=== PATIENT | male | born 1955 | race Caucasian/White ===

== ENCOUNTER 2019-06-13 06:57 | Outpatient (CLI) | payer OTHER, SELFPAY ==
[2019-06-13 08:17] LABS: Hemoglobin A1C 6.9 % (<5.7)
[2019-06-15 09:42] LABS: Testosterone Total 734 ng/dL (250-1100)
== END 2019-06-13 06:58 | disposition home or self-care (01) ==
PROVIDERS: PCP Internal Medicine; Visit Provider Internal Medicine
DX: E11.9 Type 2 diabetes mellitus without complications (principal)
CPT/HCPCS: 36415; 83036; 84403

== ENCOUNTER 2019-12-02 06:36 | Outpatient (CLI) | payer OTHER, SELFPAY ==
[2019-12-02 07:26] LABS: Hemoglobin A1C 6.2 % (<5.7)
[2019-12-02 07:29] LABS: Alanine Aminotransferase 30 U/L (4-50); Albumin Level 4.3 g/dL (3.5-5.1); Alkaline Phosphatase 67 U/L (38-126); Anion Gap 6 mmol/L (8-16); Aspartate Amino Transferase 24 U/L (17-59); Bilirubin,Total 0.5 mg/dL (0.2-1.3); Blood Urea Nitrogen 16 mg/dL (9-20); Calcium 9.1 mg/dL (8.4-10.2); Carbon Dioxide 30 mmol/L (22-30); Chloride 102 mmol/L (98-107); Cholesterol 124 mg/dL (0-200); Estimated Glomerular Filt Rate > 60; Glucose 108 mg/dL (75-110); HDL Direct 34 mg/dL; Potassium 4.8 mmol/L (3.4-5.0); Sodium 138 mmol/L (137-145); Triglycerides 164 mg/dL (<150)
[2019-12-02 07:41] LABS: LDL Cholesterol Direct 59 mg/dL
[2019-12-02 08:08] LABS: Vitamin D 25 Hydroxy 37.4 ng/mL
[2019-12-06 13:12] LABS: Testosterone Total 218 ng/dL (250-1100)
== END 2019-12-02 06:37 | disposition home or self-care (01) ==
PROVIDERS: PCP Internal Medicine; Visit Provider Nurse Practitioner
DX: E55.9 Vitamin D deficiency, unspecified (principal); E11.9 Type 2 diabetes mellitus without complications; E78.5 Hyperlipidemia, unspecified; E29.1 Testicular hypofunction
CPT/HCPCS: 36415; 80053; 80061; 82306; 83036; 84403

== ENCOUNTER 2019-12-23 06:46 | Outpatient (CLI) | payer OTHER, SELFPAY ==
[2019-12-29 00:37] LABS: Testosterone Free 146.3 pg/mL (35.0-155.0); Testosterone Total 540 ng/dL (250-1100)
== END 2019-12-23 06:47 | disposition home or self-care (01) ==
PROVIDERS: PCP Internal Medicine; Visit Provider Nurse Practitioner
DX: E29.1 Testicular hypofunction (principal); R79.89 Other specified abnormal findings of blood chemistry
CPT/HCPCS: 36415; 84402; 84403

== ENCOUNTER 2020-03-27 06:40 | Outpatient (CLI) | payer OTHER, SELFPAY ==
[2020-03-27 07:51] LABS: Alanine Aminotransferase 25 U/L (4-50); Albumin Level 4.1 g/dL (3.5-5.1); Alkaline Phosphatase 68 U/L (38-126); Anion Gap 7 mmol/L (8-16); Aspartate Amino Transferase 20 U/L (17-59); Bilirubin,Total 0.4 mg/dL (0.2-1.3); Blood Urea Nitrogen 21 mg/dL (9-20); Calcium 9.4 mg/dL (8.4-10.2); Carbon Dioxide 30 mmol/L (22-30); Chloride 103 mmol/L (98-107); Cholesterol 118 mg/dL (0-200); Estimated Glomerular Filt Rate > 60; Glucose 151 mg/dL (75-110); HDL Direct 33 mg/dL; Potassium 4.9 mmol/L (3.4-5.0); Sodium 140 mmol/L (137-145); Triglycerides 133 mg/dL (<150)
[2020-03-27 08:02] LABS: LDL Cholesterol Direct 61 mg/dL
[2020-03-27 08:06] LABS: Hemoglobin A1C 6.9 % (<5.7)
[2020-03-31 11:17] LABS: Testosterone Total 959 ng/dL (250-1100)
== END 2020-03-27 06:41 | disposition home or self-care (01) ==
PROVIDERS: PCP Internal Medicine; Visit Provider Nurse Practitioner
DX: E78.5 Hyperlipidemia, unspecified (principal); E11.9 Type 2 diabetes mellitus without complications; E29.1 Testicular hypofunction
CPT/HCPCS: 36415; 80053; 80061; 83036; 84403

== ENCOUNTER → 2020-04-04 06:56 | Outpatient (CLI) | payer OTHER, SELFPAY ==
--- NOTE | ~2020-04-04 | MR_ITS ---
EXAMINATION: MR cervical spine wo con DATE: 04/04/2020 08:00 INDICATION: Neck pain. TECHNIQUE: Magnetic resonance imaging (MRI) of the cervical spine was performed without intravenous c ontrast. Sequences included sagittal T2-weighted FSE, sagittal STIR FSE, sagittal T1-weighted FSE, ax ial MERGE, and axial T2-weighted FSE. COMPARISON: Cervical spine MRI 05/19/2011 FINDINGS: Bone alignment is normal. Vertebral body heights are normal. There is mildly decreased disc height at C4-C5, C5-C6, and C6-C7. There is developmental osseous central canal stenosis from C1 the C7. The spinal cord signal intensity is normal. The following disc levels are specifically discussed : C2-C3: The disc does not extend beyond the endplate margin. There is no uncovertebral joint osteoarth ritis. There is mild bilateral facet joint osteoarthritis. There is no neural foraminal stenosis. The re is mild central canal stenosis. C3-C4: The disc does not extend beyond the endplate margin. There is moderate right and mild left unc overtebral joint osteoarthritis. There is mild right facet joint osteoarthritis. There is mild right neural foraminal stenosis. There is mild central canal stenosis. C4-C5: The disc is bulging. There is severe bilateral uncovertebral joint osteoarthritis. There is mi ld left facet joint osteoarthritis. There is moderate bilateral neural foraminal stenosis. There is m ild central canal stenosis with ventral indentation of the spinal cord. C5-C6: The disc is bulging. There is moderate right and severe left uncovertebral joint osteoarthriti s. There is mild bilateral facet joint osteoarthritis. There is moderate bilateral neural foraminal s tenosis. There is mild central canal stenosis with ventral indentation of the spinal cord. C6-C7: The disc is bulging with superimposed central extrusion. There is moderate bilateral uncoverte bral joint osteoarthritis. There is no facet joint osteoarthritis. There is moderate bilateral neural foraminal stenosis. There is moderate central canal stenosis with ventral and dorsal indentation of the spinal cord. C7-T1: The disc does not extend beyond the endplate margin. There is no uncovertebral joint osteoarth ritis. There is moderate right and mild left facet joint osteoarthritis. There is no neural foraminal stenosis. There is no central canal stenosis. IMPRESSION: 1. Moderate cervical spondylosis, stable from 09/17/2011. Reviewed, dictated and finalized at location A. 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
--- NOTE | ~2020-04-04 | MR_ITS ---
EXAMINATION: MR lumbar spine wo con DATE: 04/04/2020 08:05 INDICATION: Low back pain. TECHNIQUE: Magnetic resonance imaging (MRI) of the lumbar spine was performed without intravenous con trast. Sequences included sagittal T2-weighted FSE, sagittal T2-weighted FS FSE, sagittal T1-weighted FSE, and axial T2-weighted FSE. COMPARISON: Lumbar spine MRI 09/29/2018 FINDINGS: There is 5 degrees levocurvature of lumbar spine. There is 3 mm anterolisthesis of L4 on L5 . There are Schmorl's nodes at all levels. There is mildly decreased disc height at L2-L3. The distal spinal cord signal intensity is normal. The conus medullaris is at L1. The following disc levels are specifically discussed: L1-L2: The disc does not extend beyond the endplate margin. There is mild bilateral facet joint osteo arthritis. There is no neural foraminal stenosis. There is no central canal stenosis. L2-L3: The disc is bulging. There is mild bilateral facet joint osteoarthritis. There is moderate ml ateral neural foraminal stenosis. There is mild central canal stenosis. L3-L4: The disc is bulging. There is mild bilateral facet joint osteoarthritis. There is moderate ml ateral neural foraminal stenosis. There is mild central canal stenosis. L4-L5: The disc is bulging. There is severe bilateral facet joint osteoarthritis. There is moderate b ilateral neural foraminal stenosis. There is mild central canal stenosis. L5-S1: The disc is bulging and has an annular fissure. There is moderate bilateral facet joint osteoa rthritis. There is mild right and moderate left neural foraminal stenosis. There is mild central ralph l stenosis. IMPRESSION: 1. Moderate lumbar spondylosis, stable from 09/29/2018. Reviewed, dictated and finalized at location A. 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
== END ==
PROVIDERS: PCP Internal Medicine; Visit Provider Nurse Practitioner Family
DX: M47.897 Other spondylosis, lumbosacral region (principal); M47.892 Other spondylosis, cervical region; M47.896 Other spondylosis, lumbar region
CPT/HCPCS: 72141; 72148

== ENCOUNTER 2020-04-16 08:36 | Outpatient (CLI) | payer OTHER, SELFPAY ==
--- NOTE | ~2020-04-16 | CT_ITS ---
EXAMINATION: CT lung screening EXAM DATE: 04/16/2020 09:12 INDICATION: Z72.0 - Tobacco use. Personal history of nicotine dependence. TECHNIQUE: Spiral low dose CT of the chest without contrast. Axial, coronal and sagittal images were reviewed. The dose-length product (DLP) for this examination was 317.95 mGy-cm. The exposure was t ailored according to patient size (auto mA exposure control), and iterative reconstruction (ASIR) was used as additional dose reduction technique. There is no prior study for comparison. FINDINGS: There is calcified left upper lobe granuloma. 2 to 3 mm pleural-based right upper lobe nod ule on axial image 36. Small amount of linear bibasilar scarring. No suspicious pulmonary opacities. Tracheobronchial tree is patent. There is no mediastinal, hilar or axillary lymphadenopathy. Sma ll pericardial effusion. There is no pneumothorax. Heart normal in size. There is mild coronary arterial calcification, arterial sclerosis. Upper abdomen is unremarkable. There is mild thoracic s pondylosis without osteoblastic or osteolytic lesions identified. IMPRESSION: Lung-RADS category 2, benign appearance or behavior (<1% chance of malignancy); recommend continued LDCT screening in 1 year. Reviewed, dictated and finalized at location A. E
== END 2020-04-16 08:37 | disposition home or self-care (01) ==
PROVIDERS: PCP Internal Medicine; Visit Provider Internal Medicine
DX: Z12.2 Encounter for screening for malignant neoplasm of respiratory organs (principal); Z87.891 Personal history of nicotine dependence
CPT/HCPCS: 71271

== ENCOUNTER → 2020-05-11 06:57 | Outpatient (CLI) | payer OTHER, SELFPAY ==
[2020-05-11 18:19] LABS: SARS-CoV-2 RNA PCR Negative
== END ==
PROVIDERS: PCP Internal Medicine; Visit Provider Nurse Practitioner
DX: Z20.822 Contact with and (suspected) exposure to COVID-19 (principal); R05 Cough
CPT/HCPCS: C9803; U0003; U0005

== ENCOUNTER 2020-07-16 06:36 | Outpatient (CLI) | payer OTHER, SELFPAY ==
[2020-07-16 07:46] LABS: Alanine Aminotransferase 46 U/L (4-50); Albumin Level 4.3 g/dL (3.5-5.1); Alkaline Phosphatase 66 U/L (38-126); Anion Gap 3 mmol/L (8-16); Aspartate Amino Transferase 33 U/L (17-59); Bilirubin,Total 0.2 mg/dL (0.2-1.3); Blood Urea Nitrogen 20 mg/dL (9-20); Calcium 9.3 mg/dL (8.4-10.2); Carbon Dioxide 32 mmol/L (22-30); Chloride 102 mmol/L (98-107); Cholesterol 121 mg/dL (0-200); Estimated Glomerular Filt Rate > 60; Glucose 110 mg/dL (75-110); HDL Direct 38 mg/dL; Potassium 4.5 mmol/L (3.4-5.0); Sodium 137 mmol/L (137-145); Triglycerides 245 mg/dL (<150)
[2020-07-16 07:58] LABS: LDL Cholesterol Direct 48 mg/dL
[2020-07-16 08:17] LABS: Prostate Specific Antigen 0.6 ng/mL (< OR = 4.0)
[2020-07-16 08:45] LABS: Hemoglobin A1C 7.5 % (<5.7)
[2020-07-16 09:02] LABS: Vitamin D 25 Hydroxy 29.3 ng/mL
[2020-07-16 09:16] LABS: Creatinine Urine 176.6 mg/dL
[2020-07-16 09:20] LABS: MALB Creatinine Ratio 6.9 mg/g (0-30); Microalbumin Urine Random 12.1 mg/L (0-16.7)
[2020-07-20 12:59] LABS: Testosterone Total 773 ng/dL (250-1100)
== END 2020-07-16 06:37 | disposition home or self-care (01) ==
PROVIDERS: PCP Internal Medicine; Visit Provider Internal Medicine
DX: E11.51 Type 2 diabetes mellitus with diabetic peripheral angiopathy without gangrene (principal); I10 Essential (primary) hypertension; E78.5 Hyperlipidemia, unspecified; Z12.5 Encounter for screening for malignant neoplasm of prostate; E29.1 Testicular hypofunction; R53.83 Other fatigue; E55.9 Vitamin D deficiency, unspecified
CPT/HCPCS: 36415; 80053; 80061; 82043; 82306; 83036; 84153; 84403; 84443; G0103

== ENCOUNTER 2020-07-17 08:00 | Outpatient (CLI) | payer OTHER, MEDICARE, SELFPAY | END 2020-07-17 08:01 | disposition home or self-care (01) | LOC: ANHCOVIDVC 08:01 | PROVIDERS: PCP Internal Medicine | DX: Z23 Encounter for immunization (principal) | CPT/HCPCS: 0001A; 91300 ==

== ENCOUNTER 2020-08-06 09:25 | Outpatient (CLI) | payer MEDICARE, SELFPAY | END 2020-08-06 09:26 | disposition home or self-care (01) | PROVIDERS: PCP Internal Medicine; Visit Provider Nurse Practitioner | DX: G47.00 Insomnia, unspecified (principal) | CPT/HCPCS: 36415; 84443 ==

== ENCOUNTER 2020-08-07 08:00 | Outpatient (CLI) | payer MEDICARE, SELFPAY | END 2020-08-07 08:01 | disposition home or self-care (01) | LOC: ANHCOVIDVC 08:00 | PROVIDERS: PCP Internal Medicine | DX: Z23 Encounter for immunization (principal) | CPT/HCPCS: 0002A; 91300 ==

== ENCOUNTER → 2021-01-28 06:51 | Outpatient (CLI) | payer OTHER, SELFPAY ==
--- NOTE | ~2021-01-28 | XR_ITS ---
EXAMINATION: XR cervical spine 4-5V EXAM DATE: 01/28/2021 08:30 INDICATION: Radiculopathy cervical region. TECHNIQUE: Cervical spine frontal, lateral, lateral swimmers, and open-mouth odontoid projections. C omparison is made to prior examination from 10/28/2018. FINDINGS: There is mild to moderate mid and lower cervical disc disease. Mild to moderate cervical a rthropathy. The vertebral bodies are aligned in the AP dimension. There are no acute fractures identi fied. The odontoid process is intact. The lateral masses of C1 line up with C2. Prevertebral soft ti ssue and pre-dens space are within normal limits. Mild carotid calcification, arterial sclerotic dise ase, with unknown amount of additional atherosclerotic disease. Consider correlating with carotid ul trasound. Difficult to appreciate any significant interval change compared to 2019. IMPRESSION: 1. Carotid arteriosclerosis, consider screening ultrasound. 2. Mild to moderate cervical spondylosis. Reviewed, dictated and finalized at location A.
--- NOTE | ~2021-01-28 | XR_ITS ---
EXAMINATION: XR knee LT 2V EXAM DATE: 01/28/2021 08:30 INDICATION: Pain in unspecified knee. TECHNIQUE: Frontal and lateral projections of the left knee standing. Comparison is made to prior ex amination from 07/26/2020. FINDINGS: Total left knee arthroplasty hardware in position. Trace joint fluid. There are no acute f ractures identified. Mild scattered arterial sclerosis. There is no significant interval change. IMPRESSION: Intact left knee arthroplasty. Reviewed, dictated and finalized at location A.
--- NOTE | ~2021-01-28 | XR_ITS ---
EXAMINATION: XR knee RT 2V EXAM DATE: 01/28/2021 08:30 INDICATION: Pain in unspecified knee. TECHNIQUE: Frontal and lateral projections of the right knee standing. Prior left knee exam from 16 which does have sunrise projection of both knees. FINDINGS: Right knee arthroplasty hardware is in expected position. No periprosthetic lucency. Only trace joint fluid. Minimal scattered arterial sclerotic disease. There are no acute fractures identif ied. IMPRESSION: Intact right knee arthroplasty. Reviewed, dictated and finalized at location A.
--- NOTE | ~2021-01-28 | XR_ITS ---
EXAMINATION: XR lumbar spine 2-3V EXAM DATE: 01/28/2021 08:30 INDICATION: Radiculopathy lumbar region. TECHNIQUE: Lumber spine frontal, lateral, lateral L5-S1 projections for interpretation. Images obtai tray standing. Comparison is made to prior examination from 09/09/2018. FINDINGS: There is 3 mm anterolisthesis L4 on L5. Mild diffuse lumbar disc disease. No spondylolysis . There is moderate lower lumbar facet arthropathy. Mild lumbar levoscoliosis. Sacrum, sacroiliac yoana nts, sacral arcuate lines are intact. Paraspinal soft tissue is unremarkable. Mild to moderate aortic arterial sclerosis. IMPRESSION: 1. Grade 1 anterolisthesis L4 on L5. 2. Moderate lower lumbar facet arthropathy. Reviewed, dictated and finalized at location A.
--- NOTE | ~2021-01-28 | XR_ITS ---
EXAMINATION: XR shoulder LT min 2V EXAM DATE: 01/28/2021 08:30 INDICATION: Left shoulder pain. No recent injury reported. Left shoulder surgery where they scraped b one a few years ago. TECHNIQUE: The following left shoulder projections obtained: frontal projection with internal rotatio n, frontal projection with external rotation, Grashey, and axillary (4+ views). Comparison is made to prior examination from 07/26/2020. FINDINGS: No evidence of left shoulder rotator cuff calcific tendinosis. There is mild to moderate glenohumeral joint, moderate acromioclavicular joint primary osteoarthritis. Left upper lobe calcif ied granuloma. There are no acute fractures or dislocations identified. There is no subcutaneous gas . The soft tissue is unremarkable. There are no radiopaque foreign bodies. There is no significan t interval change. IMPRESSION: Left shoulder moderate acromioclavicular, mild to moderate glenohumeral osteoarthritis. Reviewed, dictated and finalized at location A. IMPRESSION: Left shoulder moderate acromioclavicular, mild to moderate glenohum eral osteoarthritis.
--- NOTE | ~2021-01-28 | XR_ITS ---
EXAMINATION: XR shoulder RT min 2V EXAM DATE: 01/28/2021 08:30 INDICATION: Shoulder pain. No known recent injury reported. TECHNIQUE: The following right shoulder projections obtained: frontal projection with internal rotati on, frontal projection with external rotation, Grashey, and axillary (4+ views). Comparison is made t o prior examination from 02/08/2018. FINDINGS: No evidence of right shoulder rotator cuff calcific tendinosis. There is mild glenohumera l joint, moderate acromioclavicular joint primary osteoarthritis. There are no acute fractures or dis locations identified. There is no subcutaneous gas. The soft tissue is unremarkable. There are no radiopaque foreign bodies. Accounting for differences in technique, there is no significant interva l change. IMPRESSION: Moderate right acromioclavicular, mild glenohumeral osteoarthritis. Reviewed, dictated and finalized at location A.
== END ==
PROVIDERS: Visit Provider Pain Medicine Interventional Pain Medicine
DX: M47.22 Other spondylosis with radiculopathy, cervical region (principal); F41.1 Generalized anxiety disorder; M17.9 Osteoarthritis of knee, unspecified; M19.012 Primary osteoarthritis, left shoulder; M19.011 Primary osteoarthritis, right shoulder
CPT/HCPCS: 72050; 72100; 73030; 73560

== ENCOUNTER 2021-03-06 13:16 | Outpatient (CLI) | payer OTHER, SELFPAY ==
--- NOTE | ~2021-03-06 | US_ITS ---
EXAMINATION: US carotid duplex BI DATE: 03/06/2021 14:07 INDICATION: Arteriosclerosis of the bilateral carotid arteries TECHNIQUE: Grayscale, color Doppler, and pulsed Doppler images of the cervical carotid arteries were obtained. The degree of vessel stenosis is placed in one of the following categories: normal, <50%, 5 0-69%, >=70% but less than near-occlusion, near-occlusion, or total occlusion. Note that percent sten osis relative to normal distal artery lumen diameter is indirectly measured from velocity measurement s as described by Alfredo, et al. Radiology 2003; [id number]:340-346. COMPARISON: None. FINDINGS: RIGHT: The right common carotid artery (CCA) peak systolic velocity (PSV) is 103 cm/s. The right internal ca rotid artery (ICA) PSV is 82 cm/s. The right ICA end-diastolic velocity (EDV) is 26 cm/s. The right I CA/CCA PSV ratio is 0.8. Grayscale and color Doppler images yield an estimate of <50% diameter reduct ion from plaque in the ICA. The external carotid artery (ECA) PSV is 82 cm/s. There is antegrade flow in the right vertebral artery. LEFT: The left CCA PSV is 102 cm/s. The left ICA PSV is 70 cm/s. The left ICA EDV is 23 cm/s. The left ICA/ CCA PSV ratio is 0.7. Grayscale and color Doppler images yield an estimate of <50% diameter reduction from plaque in the ICA. The ECA PSV is 129 cm/s. There is antegrade flow in the left vertebral arter y. IMPRESSION: 1. <50% stenosis in the right internal carotid artery. 2. <50% stenosis in the left internal carotid artery. Reviewed, dictated and finalized at location B. 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
--- NOTE | ~2021-03-06 | MR_ITS ---
EXAMINATION: MR hip LT wo con DATE: 03/06/2021 15:14 INDICATION: Left hip pain TECHNIQUE: Magnetic resonance imaging (MRI) of the left hip was performed without intravenous contra st. Sequences included full-field axial PD-weighted FS FSE and T1-weighted FSE, coronal of the pelvis with PD-weighted FS FSE, small field of view of the left hip with axial PD-weighted FS FSE, sagitta l PD-weighted FS FSE and coronal PD weighted FS FSE. Additional radial T1-weighted FGR oriented ortho gonal to the acetabular rim were obtained for evaluation of the labrum. COMPARISON: Left hip radiographs dated 02/25/2021 FINDINGS: Bones/labrum/cartilage: Alignment is normal. No fracture, avascular necrosis or pathologic marrow replacing process. Mild no nuniform joint space narrowing with partial thickness cartilage loss at the left hip. Small marginal osteophytes about the femoral head and acetabulum. Mild degeneration at the posterior superior left a cetabular labrum. Mild lumbar spondylosis. Fluid: Symmetric physiologic amount of fluid within both hip joints. Small amount of fluid at the left glute us medius bursa consistent with mild bursitis. There is also small amount of fluid consistent with mi ld bursitis at the left ischial bursa. Soft tissues: Normal and symmetric muscle bulk and signal in the pelvis and visualized proximal thighs. Mild tendin opathy at the ischial tuberosity origins of the bilateral proximal hamstring tendons. There is a high -grade partial if not complete tear near the origin of the combined left biceps femoris and semitendi nosus tendon with approximately 1 m retraction. The semimembranosus tendon remains intact. There is a lso mild tendinopathy of the left gluteus medias tendon with small mild partial-thickness tear which extends approximately 2 cm along the deep margin of the posterior superior and lateral facet footplat e of the tendon and involves approximately one third of the tendon thickness. The bilateral iliopsoas , right hamstring and remaining gluteal tendons are normal. Mild prostatomegaly measuring 4.8 x 3.7 cm. Limited evaluation of visceral organs of the pelvis is otherwise unremarkable. No pathologically enlarged pelvic/inguinal lymphadenopathy. IMPRESSION: 1. Left ischial bursitis with mild tendinopathy and high-grade partial if not complete tear near the origin of the combined proximal biceps femoris/semitendinosus tendons. 2. Mild left gluteus medius medius bursitis with mild tendinopathy and mild partial thickness tear al mirela the deep greater trochanteric footplate of the tendon. 3. Mild left hip osteoarthritis with mild posterior superior labral degeneration. Reviewed, dictated and finalized at location B. STILL OPERATOR IMPRESSION: 1. Left ischial bursitis with mild tendinopathy and high-grade partial if not c omplete tear near the origin of the combined proximal biceps femoris/semitendin osus tendons. 2. Mild left gluteus medius medius bursitis with mild tendinopathy and mild par tial thickness tear along the deep greater trochanteric footplate of the tendon . 3. Mild left hip osteoarthritis with mild posterior superior labral degeneratio n.
== END 2021-03-06 13:17 | disposition home or self-care (01) ==
LOC: ANHIMG 13:20
PROVIDERS: PCP Student in an Organized Health Care Education/Training Program; Visit Provider Orthopaedic Surgery
DX: I65.23 Occlusion and stenosis of bilateral carotid arteries (principal); M16.11 Unilateral primary osteoarthritis, right hip; M70.72 Other bursitis of hip, left hip
CPT/HCPCS: 73721; 93880

== ENCOUNTER 2022-03-31 11:39 | Emergency (ER) | payer OTHER, SELFPAY ==
--- NOTE | ~2022-03-31 | XR_ITS ---
EXAMINATION: XR chest 2V DATE: 03/31/2022 12:29 INDICATION: Weakness. Chronic obstructive pulmonary disease. Shortness of breath. TECHNIQUE: Frontal and lateral views of the chest were obtained. COMPARISON: Chest 2 views 01/15/2009 FINDINGS: There is no pneumonia, pleural effusion, or pneumothorax. The heart size is normal. IMPRESSION: 1. No acute cardiopulmonary disease. Reviewed, dictated and finalized at location A. 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
--- NOTE | 2022-03-31 11:48 | ECG_ITS ---
Measurements Intervals [place] Rate: 102 P: 62 RI: 172 QRS: 31 QRSD: 83 T: 60 QT: 311 QTc: 406 Interpretive Statements SINUS TACHYCARDIA BASELINE ARTIFACT- III, AVL BORDERLINE ECG NO PREVIOUS ECG AVAILABLE FOR COMPARISON Electronically Signed On 03-31-2022 14:47:02 QUALITATIVE EXECUTIVE RESEARCHER by Giovani Sears D.O.
[2022-03-31 11:50] VITALS: BP 135/75; PULSE 105; RESP 18; TEMP 36.2; O2SAT 93
[2022-03-31 12:12] LABS: Basophils Percent Auto 0.3 % (0.2-1.2); Eosinophils Absolute Auto 0.2 K/mm3 (0-0.3); Hematocrit 42.3 % (42.0-52.0); Hemoglobin 13.3 g/dL (14.0-18.0); Immature Granulocyte Absolute 0.02 K/mm3 (0.00-0.031); Immature Granulocyte Percent A 0.3 % (0-0.5); Lymphocytes Percent Auto 17.2 % (18.3-44.2); Mean Corpuscular HGB Conc 31.4 g/dl (32-36); Mean Corpuscular Hemoglobin 29.5 pg (26-34); Mean Corpuscular Volume 93.8 fl (80-100); Monocytes Absolute Auto 0.6 K/mm3 (0.1-0.6); Neutrophils Absolute Auto 4.4 K/mm3 (1.3-6.7); Neutrophils Percent Auto 69.2 % (45.5-73.1); Platelet Count Result 200 k/mm3 (150-375); Red Blood Count 4.51 M/mm3 (4.6-6.20); Red Cell Distribution Width 13.1 % (11.5-14.5); White Blood Count 6.4 K/mm3 (4.5-10.0)
[2022-03-31 12:21] LABS: Magnesium 1.3 mg/dL (1.6-2.3)
[2022-03-31 12:23] LABS: Alanine Aminotransferase 23 U/L (6-50); Albumin Level 4.2 g/dL (3.5-5.1); Alkaline Phosphatase 138 U/L (38-126); Anion Gap 4 mmol/L (8-16); Aspartate Amino Transferase 21 U/L (17-59); Bilirubin,Total 0.4 mg/dL (0.2-1.3); Blood Urea Nitrogen 19 mg/dL (9-20); Calcium 8.4 mg/dL (8.4-10.2); Carbon Dioxide 34 mmol/L (22-30); Chloride 97 mmol/L (98-107); Estimated CRCL calculation 134 ml/min; Estimated Glomerular Filt Rate > 60; Glucose 204 mg/dL (65-110); Potassium 4.3 mmol/L (3.4-5.0); Sodium 135 mmol/L (137-145)
[2022-03-31 12:34] LABS: Troponin I < 0.012 ng/mL (0.000-0.034)
--- NOTE | 2022-03-31 15:14 | PC.NURSE ---
pt states he has been here since 11 and is going to go home. wanted edp to look at his meds and see if they were the cause for this. made aware that this is not possible.
== END 2022-03-31 15:14 | disposition left against medical advice (07) ==
PROVIDERS: Physician Assistant; Emergency Provider Emergency Medicine; PCP Student in an Organized Health Care Education/Training Program
DX: R06.02 Shortness of breath (principal); Z53.21 Procedure and treatment not carried out due to patient leaving prior to being seen by health care provider
CPT/HCPCS: 36415; 71046; 80053; 83735; 84484; 85025; 93005; 99199

== ENCOUNTER 2022-05-30 01:27 | Day surgery (SDC) | payer OTHER, SELFPAY ==
[2022-05-14 11:52] VITALS: BMI 37.3
--- NOTE | 2022-05-29 15:45 | PM.HPGS ---
History of Present Illness History of Present Illness Consent: Risks, benefits, and alternatives have been discussed and questions answered. Patient agrees to proceed with procedure. Chief complaint: neoplasm screening Narrative: Darnell Olea is a 66 year old male Was referred for colon cancer screening. Does have a history of having polyps removed in the past Review of Systems Review of Systems: All systems reviewed & are unremarkable except as noted in HPI and below PMFSH Past Medical History Medical History Bone spur Chronic knee pain after total replacement of left knee joint Left hip pain Trochanteric bursitis, left hip Surgical History Surgical History S/P rotator cuff repair Family History Family History Mother Patient's mother is in good health Father Patient's father is in good health Grandparent Diabetes mellitus Other Family history of arthritis Hypertension Social History Social History Smoking packs per day: 0.5 Smoking cigarettes per day: 10.0 Years smoked: 40 Smoking pack-years: 20.00 Smoking status: Current every day smoker Tobacco type: cigarettes Second hand tobacco smoke exposure: No Alcohol intake: never Substance use: never Substance use type: does not use Living arrangements: with family Gender identity (if verbalized by the patient): Male Spiritual care concerns: No Meds Home Medications and Allergies Home Medications Medication Instructions Recorded Confirmed Type syringe with needle, safety 3 mL #6 ea 12/07/19 06/17/21 Rx 21 gauge x 1 1/2 (Monoject Safety Syringes) blood sugar diagnostic (Contour See Rx Instructions .Route 02/03/20 05/14/22 Rx Next Test Strips) .COMPLEX #400 strips lancets #400 ea 02/03/20 06/17/21 Rx ergocalciferol (vitamin D2) 1,250 See Rx Instructions .Route 03/07/20 05/14/22 Rx mcg (50,000 unit) capsule .COMPLEX #3 caps syringe with needle 1 mL 20 gauge #25 ea 04/04/20 06/17/21 Rx x 1 (BD Luer-Jimenez Syringe) pen needle, diabetic 32 gauge x See Rx Instructions .Route 05/08/20 05/14/22 Rx 5/32 (BD Ultra-Fine Clarissa Pen .COMPLEX #100 syringes Needle) tamsulosin 0.4 mg capsule See Rx Instructions .Route 06/25/20 05/14/22 Rx .COMPLEX #90 caps testosterone cypionate 200 mg/mL 200 mg IM .every 2 weeks #10 mL 06/25/20 05/14/22 Rx intramuscular oil (Depo-Testosterone) aspirin 81 mg chewable tablet 81 mg PO DAILY 07/27/20 05/14/22 History (Pal Chewable Low Dose Aspirin) multivitamin 1 tablet PO DAILY 07/27/20 05/14/22 History naloxone [Narcan] intranasal 07/27/20 06/17/21 History insulin glargine U-300 conc 300 See Rx Instructions .Route 08/23/20 05/14/22 Rx unit/mL (1.5 mL) subcutaneous pen .COMPLEX #4.5 syringes (TouTechFaitho SoloStar U-300 Insulin) diazepam 10 mg tablet 10 mg PO QID #120 tabs 09/07/20 05/14/22 Rx tolterodine 4 mg capsule,extended See Rx Instructions .Route 09/17/20 05/14/22 Rx release 24 hr .COMPLEX #90 caps lisinopril 20 mg tablet See Rx Instructions .Route 10/02/20 05/14/22 Rx .COMPLEX #90 tabs albuterol sulfate 90 mcg/actuation 2 puff inhalation Q4-6H PRN 10/08/20 05/14/22 Rx aerosol inhaler (ProAir HFA) shortness of breath #8.5 grams metformin 500 mg tablet,extended See Rx Instructions .Route 11/05/20 05/14/22 Rx release 24 hr .COMPLEX #360 tabs pravastatin 40 mg tablet 40 mg PO DAILY #90 tabs 11/05/20 05/14/22 Rx hydrocodone 10 mg-acetaminophen 2 tablet PO Q6H PRN pain #180 tabs 11/08/20 05/14/22 Rx 325 mg tablet glipizide 10 mg tablet 10 mg PO BID 05/14/22 05/14/22 History pregabalin 75 mg capsule 75 mg PO DAILY 05/14/22 05/14/22 History propranolol 80 mg capsule,24 80 mg PO DAILY 05/14/22 05/14/22 History hr,extended release sertraline
[2022-05-30 08:49] VITALS: BP 141/67; PULSE 112; RESP 20; TEMP 36.2; O2SAT 93
[2022-05-30] MEDS: LACTATED RINGERS 1,000 ML 150 ML IV CONT (09:00)
[2022-05-30 09:05] LABS: Glucose Point of Care 153 mg/dl (65-105)
--- NOTE | 2022-05-30 09:40 | WPDANESEPPF ---
Anes - Initial Pre Proc Eval Procedure: Operation Date: 05/30/22 10:00 Proposed Procedures p Screening Colonoscopy - Guy Hopkins MD Date/Time: 05/30/22 09:40 Surgeon: Guy Hopkins MD Pre Op Diagnosis: neoplasm screening Patient Data Age: 66 Gender: M Height: 1.78 m Weight: 113.1 kg Last Vital Signs Temp 97.1 F L 05/30/22 08:49 Pulse 112 H 05/30/22 08:49 Resp 20 05/30/22 08:49 BP 141/67 H 05/30/22 08:49 Pulse Ox 93 05/30/22 08:49 O2 Del Method Room Air 05/30/22 08:49 Allergies Allergy/AdvReac Type Severity Reaction Status Date / Time No Known Allergies Allergy Verified 05/30/22 08:46 Home Medications Medication Instructions Recorded Confirmed Type syringe with needle, safety 3 mL #6 ea 12/07/19 06/17/21 Rx 21 gauge x 1 1/2 (Monoject Safety Syringes) blood sugar diagnostic (Contour See Rx Instructions .Route 02/03/20 05/14/22 Rx Next Test Strips) .COMPLEX #400 strips lancets #400 ea 02/03/20 06/17/21 Rx ergocalciferol (vitamin D2) 1,250 See Rx Instructions .Route 03/07/20 05/14/22 Rx mcg (50,000 unit) capsule .COMPLEX #3 caps syringe with needle 1 mL 20 gauge #25 ea 04/04/20 06/17/21 Rx x 1 (BD Luer-Jimenez Syringe) pen needle, diabetic 32 gauge x See Rx Instructions .Route 05/08/20 05/14/22 Rx 5/32 (BD Ultra-Fine Clarissa Pen .COMPLEX #100 syringes Needle) tamsulosin 0.4 mg capsule See Rx Instructions .Route 06/25/20 05/14/22 Rx .COMPLEX #90 caps testosterone cypionate 200 mg/mL 200 mg IM .every 2 weeks #10 mL 06/25/20 05/14/22 Rx intramuscular oil (Depo-Testosterone) aspirin 81 mg chewable tablet 81 mg PO DAILY 07/27/20 05/14/22 History (Pal Chewable Low Dose Aspirin) multivitamin 1 tablet PO DAILY 07/27/20 05/14/22 History naloxone [Narcan] intranasal 07/27/20 06/17/21 History insulin glargine U-300 conc 300 See Rx Instructions .Route 08/23/20 05/14/22 Rx unit/mL (1.5 mL) subcutaneous pen .COMPLEX #4.5 syringes (Toujeo SoloStar U-300 Insulin) diazepam 10 mg tablet 10 mg PO QID #120 tabs 09/07/20 05/14/22 Rx tolterodine 4 mg capsule,extended See Rx Instructions .Route 09/17/20 05/14/22 Rx release 24 hr .COMPLEX #90 caps lisinopril 20 mg tablet See Rx Instructions .Route 10/02/20 05/14/22 Rx .COMPLEX #90 tabs albuterol sulfate 90 mcg/actuation 2 puff inhalation Q4-6H PRN 10/08/20 05/14/22 Rx aerosol inhaler (ProAir HFA) shortness of breath #8.5 grams metformin 500 mg tablet,extended See Rx Instructions .Route 11/05/20 05/14/22 Rx release 24 hr .COMPLEX #360 tabs pravastatin 40 mg tablet 40 mg PO DAILY #90 tabs 11/05/20 05/14/22 Rx hydrocodone 10 mg-acetaminophen 2 tablet PO Q6H PRN pain #180 tabs 11/08/20 05/14/22 Rx 325 mg tablet glipizide 10 mg tablet 10 mg PO BID 05/14/22 05/14/22 History pregabalin 75 mg capsule 75 mg PO DAILY 05/14/22 05/14/22 History propranolol 80 mg capsule,24 80 mg PO DAILY 05/14/22 05/14/22 History hr,extended release sertraline 100 mg tablet 100 mg PO DAILY 05/14/22 05/14/22 History Laboratory Tests 05/30/22 09:01 POC Capillary Glucose 153 mg/dl H mg/dl (65-105) Patient hx anesthesia problems: none Family hx anesthesia problems: none Results Review: All pre-operative results and documents have been reviewed as part of the pre-operative evaluation. [facility] Past Medical History Medical History Bone spur Chronic knee pain after total replacement of left knee joint Left hip pain Trochanteric bursitis, left hip Surgical History Surgical History S/P rotator cuff repair Family History Family History Mother Patient's mother is in good health Father Patient's father is in good health Grandparent Diabetes mellitus Other Family history of arthritis Hypertension Social History Social History
[2022-05-30 10:23] VITALS: BP 116/68; PULSE 102; RESP 26; O2SAT 90
[2022-05-30 10:33] VITALS: BP 119/70; PULSE 102; RESP 22; O2SAT 91
[2022-05-30 10:43] VITALS: BP 131/80; PULSE 96; RESP 25; O2SAT 91
[2022-05-30 11:10] LABS: Glucose Point of Care 144 mg/dl (65-105)
== END 2022-05-30 10:51 | disposition home or self-care (01) ==
PROVIDERS: PCP Student in an Organized Health Care Education/Training Program; Visit Provider Internal Medicine Gastroenterology
PROC: 0DJD8ZZ Inspection of Lower Intestinal Tract, Via Natural or Artificial Opening Endoscopic (ICD-10-PCS; CPT 45378; principal; 2022-05-30 10:00)
DX: Z12.11 Encounter for screening for malignant neoplasm of colon (principal); K57.30 Diverticulosis of large intestine without perforation or abscess without bleeding; Z86.010 Personal history of colon polyps; Z79.890 Hormone replacement therapy; Z79.82 Long term (current) use of aspirin; Z79.4 Long term (current) use of insulin; Z79.51 Long term (current) use of inhaled steroids; Z79.84 Long term (current) use of oral hypoglycemic drugs; Z79.891 Long term (current) use of opiate analgesic; F17.210 Nicotine dependence, cigarettes, uncomplicated; E66.9 Obesity, unspecified; Z68.35 Body mass index [BMI] 35.0-35.9, adult
CPT/HCPCS: G0105; 82948; J2704; J7120

== ENCOUNTER → 2022-08-22 13:18 | Outpatient (CLI) | payer OTHER, SELFPAY ==
--- NOTE | ~2022-08-22 | XR_ITS ---
Thoracic spine: Clinical Indication: Back pain AP and lateral views were performed. Possible mild compression deformity of T9. No other fracture stabilization seen. The intervertebral d isc spaces appear normal. Paravertebral soft tissues appear normal. Impression: Possible mild compression deformity of T9. Reviewed, dictated and finalized at [facility]. Impression: Possible mild compression deformity of T9.
--- NOTE | ~2022-08-22 | XR_ITS ---
Lumbosacral Spine: AP and lateral views Clinical History: Pain Findings: The normal lordotic curve is maintained. No fracture or subluxation seen. There is mild deg enerative disc change at L4-L5 and L5-S1. There is advanced facet arthropathy at L4-L5 and L5-S1. The re is minimal degenerative disc change in the remainder of the lumbar spine. The sacroiliac joints ar e normally outlined. Impression: Degenerative changes, particularly at L4-L5 and L5-S1, as detailed above. Reviewed, dictated and finalized at location M. Impression: Degenerative changes, particularly at L4-L5 and L5-S1, as detailed above.
--- NOTE | ~2022-08-22 | XR_ITS ---
Cervical Spine: AP, lateral, open-mouth views Clinical History: Pain Findings: The normal lordotic curve is maintained. The vertebral bodies and posterior elements appea r intact. The intervertebral disc spaces are well maintained. Minimal facet arthropathy present in t he cervical spine. Pre-vertebral soft tissues are unremarkable. Impression: Minimal degenerative change, as above. Reviewed, dictated and finalized at location . Impression: Minimal degenerative change, as above.
== END ==
PROVIDERS: PCP Internal Medicine; Visit Provider Pain Medicine Interventional Pain Medicine
DX: M47.23 Other spondylosis with radiculopathy, cervicothoracic region (principal); M47.26 Other spondylosis with radiculopathy, lumbar region; M47.22 Other spondylosis with radiculopathy, cervical region; M47.27 Other spondylosis with radiculopathy, lumbosacral region; F41.1 Generalized anxiety disorder; G89.4 Chronic pain syndrome; M51.36 Other intervertebral disc degeneration, lumbar region; M51.37 Other intervertebral disc degeneration, lumbosacral region
CPT/HCPCS: 72050; 72070; 72100

== ENCOUNTER → 2022-10-28 09:55 | Outpatient (CLI) | payer OTHER, SELFPAY ==
--- NOTE | ~2022-10-28 | MR_ITS ---
EXAMINATION: MR lumbar spine wo con DATE: 10/28/2022 10:36 INDICATION: Dorsalgia TECHNIQUE: Magnetic resonance imaging (MRI) of the lumbar spine was performed without intravenous con trast. Sequences included sagittal T2-weighted FSE, sagittal T2-weighted FS FSE, sagittal T1-weighted FSE, and axial T2-weighted FSE. COMPARISON: None FINDINGS: 1 mm retrolisthesis L1 on L2. 2 mm anterolisthesis L4 on L5. Vertebral body heights are normal. Small Schmorl's nodes along many of the endplates in the lumbar and lower thoracic spine. Mild fibrovascul ar degenerative endplate changes along the anterior superior endplate of L4. Mild left-sided disc hei ght loss at T12-L1, Mild to moderate right-sided predominant disc height loss at L2-L3. Mild disc hei ght loss at L3-L4 through L5-S1. Annular fissure at L5-S1. The conus medullaris terminates at L1. The re is normal signal in the caudal spinal cord. Paravertebral soft tissues are unremarkable. The follo wing disc levels are specifically discussed: T12-L1: Disc is mildly bulging. There is mild bilateral facet joint osteoarthritis. There is minimal bilateral neural foraminal stenosis. There is mild central canal stenosis. L1-L2: Very small disc protrusions at the bilateral foraminal zones. There is mild bilateral facet carrington int osteoarthritis. There is minimal left neural foraminal stenosis. There is no central canal stenos is. L2-L3: Disc is bulging. There is mild bilateral facet joint osteoarthritis. There is moderate bilater al neural foraminal stenosis. There is mild central canal stenosis. L3-L4: Disc is bulging. There is moderate right and mild to moderate left facet joint osteoarthritis. There is moderate bilateral neural foraminal stenosis. There is mild to moderate central canal steno sis. L4-L5: Disc is bulging. There is severe bilateral facet joint osteoarthritis. There is moderate bilat eral neural foraminal stenosis. There is moderate central canal stenosis. L5-S1: Disc is bulging with annular fissure. There is moderate bilateral facet joint osteoarthritis. There is mild right and moderate left neural foraminal stenosis. There is no central canal stenosis. IMPRESSION: 1. Mild to moderate lumbar spondylosis. Reviewed, dictated and finalized at location L.
== END ==
PROVIDERS: PCP Neurological Surgery; Referring Provider Pain Medicine Interventional Pain Medicine; Visit Provider Internal Medicine
DX: M47.896 Other spondylosis, lumbar region (principal)
CPT/HCPCS: 72148

== ENCOUNTER 2024-06-25 08:39 | Outpatient (CLI) | payer MEDICARE, SELFPAY ==
--- NOTE | ~2024-06-25 | XR_ITS ---
XR lumbar spine 2-3V 06/25/2024 09:35 Indication: Lumbar spondylosis Procedure: 3 views lumbar spine Comparison: Comparison to multiple prior studies sequentially, with oldest reviewed study dated 03/2020. Findings: There is disc narrowing at all lumbar levels. There is facet hypertrophy at L4-5 and L5-S1 with grade 1 degenerative spondylolisthesis at L4-5. No acute fracture or traumatic malalignment. The re is mild levocurvature of the upper lumbar spine. Sacral foramen are symmetric. Impression: 1: Severe lumbar spondylosis. Reviewed, dictated and finalized at location A. Impression: 1: Severe lumbar spondylosis.
--- NOTE | ~2024-06-25 | MR_ITS ---
MRI of the lumbar spine Clinical History: Spondylosis Technique: Axial T2-weighted images, and sagittal T1-weighted, T2-weighted, and T2 fat-sat images wer e acquired. COMPARISON: 10/28/2022 Findings: No acute fracture seen. Osseous limits unchanged from prior exam. Stable minimal grade 1 re trolisthesis of L2 over L3. No suspicious bone marrow signal abnormality seen. At L1-L2, there is no disc bulge. There is moderate facet arthropathy. No central canal stenosis. The re is minimal bilateral neural foraminal narrowing. At L2-L3, there is moderate degenerative disc narrowing. There is disc bulge with moderate facet arth ropathy. There is moderate central canal stenosis/thecal sac compression. There is moderate to advanc ed bilateral neural foraminal narrowing. At L3-L4, disc bulge and moderate to advanced facet arthropathy result in severe spinal canal stenosi s/thecal sac compression. There is severe bilateral neural foraminal compromise. At L4-L5, disc bulge and severe facet arthropathy result in severe spinal canal stenosis/thecal sac c ompression. There is severe bilateral neural foraminal, otherwise. At L5-S1, there is mild disc bulge with moderate facet arthropathy. No central canal stenosis. There is severe left neural foraminal narrowing. There is mild right neural foraminal narrowing. Paravertebral soft tissues are unremarkable. Impression: Severe degenerative spondylosis, especially at L3-L4 and L4-L5. Please see details above. Reviewed, dictated and finalized at [facility]. Impression: Severe degenerative spondylosis, especially at L3-L4 and L4-L5. Please see deta ils above.
== END 2024-06-25 08:40 | disposition home or self-care (01) ==
LOC: MICIMG 08:40
PROVIDERS: PCP Family Medicine Adolescent Medicine; Visit Provider Nurse Practitioner Adult Health
DX: M47.816 Spondylosis without myelopathy or radiculopathy, lumbar region (principal)
CPT/HCPCS: 72100; 72148

== ENCOUNTER 2024-10-06 06:42 | Outpatient (CLI) | payer MEDICARE, SELFPAY ==
--- OUTSIDE RECORDS SUMMARY | 2024-10-06 06:46 | XMS_ITS | Clinical Summary ---
Author Organization [facility] Address [address] [place] [address] Care Team Providers Care Pecan Cleaner Name Role Phone Rick Goldman MD Primary Care Provider [phone] Source Comments [facility],non-owned Affiliates and Associated Physician Practices is amultiple site organization consisting of ambulatory clinics and hospital sitesin [place] and [place]. This disclosure is being madepursuant to the Care Everywhere program and may not contain all information available regarding this patient. Last updated 17.[facility] Allergies No known active allergies Medications * Be aware that medications may not be up to date on this document. Alwaysverify current medications with the patient. hydrocodone-acetaminoph en (NORCO) 10-325 MG tablet Active diazepam (VALIUM) 10 MG tablet Active metformin CR 24hr modified (GLUMETZA) 500 MG (MOD) tablet Acti ve glipiZIDE (GLUCOTROL) 5 MG tablet Active sitaGLIPtin (JANUVIA) 100 MG tablet Active furosemide (LASIX) 20 MG tablet Active pravastatin (PRAVACHOL) 40 MG tablet Active lisinopril 10 MG TABS 20 mg, hydrochlorothiazide 25 MG TABS 12.5 mg Acti ve amitriptyline (ELAVIL) 75 MG tablet Active diclofenac sodium (VOLTAREN) 75 MG tablet 1 Tab 3 times daily. 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 Gender Identity Not on file Sexual Orientation Not on file Last Filed Vital Signs Vital Sign Reading Time Taken Comments Blood Pressure - - Pulse - - Temperature - - Respiratory Rate - - Oxygen Saturation - - Inhaled Oxygen Concentration - - Weight 122.5 kg (270 lb) 06/30/2011 10:21 AM CDT Height 177.8 cm (5' 10) 06/30/2011 10:21 AM CDT Body Mass Index 38.74 06/30/2011 10:21 AM CDT Plan of Treatment Health Maintenance Due Date Last Done Comments COLOGUARD (AGES 45-75) - COL ON CA SCREENING 1955 COLON MONITORING 1955 COLONOSCOPY - COLON CA SCREENING 1955 CT COLONOGRAPHY - COLON CA SCREENING 1955 Colorectal Cancer Screening 1955 FIT - COLON CA SCREENING 1955 FLEX SIG - COLON CA SCREENING 1955 HEPATITIS C SCREENING 12/24/1973 DTAP/TDAP/TD VACCINES (1 - Tdap) 12/28/1974 PNEUMOCOCCAL VACCINE 50+ (1 of 1 - PCV) 12/28/2005 ZOSTER VACCINE (1 of 2) 12/28/2005 AAA SCREENING 12/28/2020 COVID-19 VACCINE (1 - 2023-2 5 season) 2023 DEPRESSION SCREENING 03/30/2024 INFLUENZA VACCINE (Season Ended) 2024 Respiratory Syncytial Virus (RSV) Vaccine Pt: or over 60 yrs (1 - 1-dose 75+ series) 12/28/2030 HEPATITIS B VACCINE Aged Out No longe r eligible based on patient's age to complete this topic HIB VACCINE Aged Out No longer eligi ble based on patient's age to complete this topic HPV VACCINE Aged Out No longer eligi ble based on patient's age to complete this topic MENINGOCOCCAL (Group B) VACC INE SHARED DECISION-MAKING Aged Out No longer eligibl e based on patient's age to complete this topic MENINGOCOCCAL GROUPS A/C/Y/W VACCINE Aged Out No longer eligible b ased on patient's age to complete this topic Insurance MEDICAID - [place] Care Teams Pecan Cleaner Relationship Specialty Start Date End Date Rick Goldman MD PCP - General Internal Medicine 05/26/11
--- OUTSIDE RECORDS SUMMARY | 2024-10-06 06:46 | XMS_ITS ---
Author Organization [facility] Address [address] [place] [address] Care Team Providers Care Spanish Translator Name Role Phone Rick Goldman Primary Care Provider REASON FOR VISIT est pcp Encounters Encounter Location Date Provider Diagnosis [address] [address] 08/18/2024 Rick Goldman Plan Of Treatment No Information Progress Notes * Darnell FLORES SrDOB: (68 yo M)Acc No.[id number]:08/18/2024 UNLOCKED PROGRESS NOTE Progress Notes Patient: Darnell KWAN Sr Provider: Savannah Goldman :1955 A ge:68 Y S ex:Male Date:08/18/2024 Address:[address] [place], [place] [id number] Subjective: * Chief Complaints: * 1 . Est pcp. * Medical History: Objective: * Vitals: Assessment: Plan: * Treatment: * * Electronic signature of Cliff Goldman , [id number] on 10/06/2024 at 06:46 AM CDT Sign off status: Pending * Provider: Savannah Goldman Date: 08/18/2024 Generated for Yuval de guzman/Raine/eTransmitting on: 0 10/06/2024 06:46 AM CDT
--- OUTSIDE RECORDS SUMMARY | 2024-10-06 06:47 | XMS_ITS | Clinical Summary ---
Author Organization [facility] Address [facility] [place] [address] Care Team Providers Care Software Quality Analyst Name Role Phone Unavailable Primary Care Provider Unavailabl e Allergies Active Allergy Reactions Criticality Noted Date Comments Duloxetine Hcl Other (see comment) 01/11/2021 [place] like he was on speed Medications NARCAN 4 MG/0.1ML nasal spray CALL 911. ADMINISTER A SINGLE SPRAY INTRANASALLY INTO ONE NOSTRIL UPON SIGNS OF OPIOID OVERDOSE. MAY REPEAT AFTER 3 MINUTES IF NO RESPONSE. 04/06/19 21 Active Multiple Vitamin (MULTIVITAMIN ADULT OR) Take 1 tablet by mouth daily. Active aspirin 81 MG chewable tablet Chew 81 mg by mouth daily. Active albuterol sulfate HFA 108 (90 Base) MCG/ACT inhalerIndications :Shortness of breath INHALE 2 PUFFS BY MOUTH EVERY 4 TO 6 HOURS NEEDED FOR SHORTNESS OF BREATH 54 g 1 02/12/20 21 Active Glucose Blood (ONETOUCH VERIO) test stripIndications:T ype 2 diabetes mellitus with diabetic polyneuropathy, with long-term current use of insulin ([facility]) 1 strip by Other route 4 (four) times daily. 400 strip 1 05/13/19 22 Active Lancets MiscIndications:Ty pe 2 diabetes mellitus with diabetic polyneuropathy, with long-term current use of insulin ([facility]) Test 4 times daily 400 each 1 08/20/19 22 Active buPROPion XL (WELLBUTRIN XL) 150 MG 24 hr tabletIndications: Anxiety Take 3 tablets (450 mg total) by mouth daily. 90 tablet 2 10/30/19 22 Active Glucose Blood (CONTOUR TEST) test stripIndications:T ype 2 diabetes mellitus with diabetic polyneuropathy, with long-term current use of insulin ([facility]) 1 strip by Other route as needed. Test four times daily 400 strip 1 01/25/20 22 Active Blood Glucose Monitoring Suppl (CONTOUR NEXT MONITOR) w/Device KitIndications:Typ e 2 diabetes mellitus with diabetic polyneuropathy, with long-term current use of insulin ([facility]) Use daily as directed 1 kit 01/30/20 22 Active fluticasone-salmet selma (WIXELA INHUB) 500-50 MCG/ACT inhalerIndications :Pulmonary emphysema, unspecified emphysema type ([facility]) Inhale 1 puff into the lungs 2 (two) times daily. 60 each 2 02/18/20 22 Active Pregabalin 300 MG CapIndications:Chr onic pain syndrome Take 1 capsule by mouth twice daily 60 capsule 2 04/09/19 23 Active tamsulosin (FLOMAX) 0.4 MG CapIndications:Familia ign prostatic hyperplasia, unspecified whether lower urinary tract symptoms present Take 2 capsules (0.8 mg total) by mouth daily. 180 capsule 1 04/22/19 23 Active sertraline (ZOLOFT) 100 MG tabletIndications: DYLON (generalized anxiety disorder) Take 2 tablets (200 mg total) by mouth daily. 180 tablet 1 04/22/19 23 Active TOUJEO SOLOSTAR 300 UNIT/ML Solution Pen-injectorIndica tions:Type 2 diabetes mellitus with diabetic polyneuropathy, with long-term current use of insulin ([facility]) Inject 45 Units into the skin every morning AND 5 Units every evening. 9 pen 2 05/22/19 23 Active propranolol LA (INDERAL LA) 80 MG 24 hr capsuleIndications :Hypertension associated with type 2 diabetes mellitus ([facility]) Take 1 capsule by mouth once daily 90 capsule 05/26/19 23 Active tolterodine LA (DETROL LA) 4 MG 24 hr capsuleIndications :Benign prostatic hyperplasia, unspecified whether lower urinary tract symptoms present Take 1 capsule (4 mg total) by mouth daily. 90 capsule 05/27/19 23 Active diazePAM (VALIUM) 10 MG tabletIndications: Anxiety TAKE 1 TABLET BY MOUTH EVERY 8 HOURS NEEDED FOR ANXIETY 90 tablet 06/03/19 23 Active HYDROcodone-acetam inophen (NORCO) 10-325 MG tabletIndications: Chronic Pain Take 1-2 tablets by mouth every 6 (six) hours as needed. Indications: Chronic Pain This script is for 30 days. 150 tablet 06/03/19 23 Active vitamin D2, ergocalciferol, (DRISDOL) 1.25 mg capsuleIndications :Vitamin D deficiency TAKE 1 CAPSULE BY MOUTH ONCE EVERY MONTH 3 capsule 06/25/19 23 Active Glucose Blood (CONTOUR NEXT TEST) test stripIndications:T ype 2 diabetes mellitus with diabetic polyneuropathy, with long-term current use of insulin ([facility]) USE 1 STRIP TO CHECK GLUCOSE 4 TIMES DAILY NEEDED 400 strip 08/15/19 23 Active BD PEN NEEDLE LAURA 2ND GEN 32G X 4 MM MiscIndications:Ty pe 2 diabetes mellitus with diabetic polyneuropathy, with long-term current use of insulin ([facility]) USE TO INJECT INSULIN ONCE DAILY 100 each 08/15/19 23 Active glipiZIDE (GLUCOTROL) 10 MG tabletIndications: Type 2 diabetes mellitus with diabetic polyneuropathy, with long-term current use of insulin ([facility]) Take 1 tablet by mouth twice daily 180 tablet 09/30/19 23 Active losartan (COZAAR) 100 MG tabletIndications: Type 2 diabetes mellitus with diabetic polyneuropathy, with long-term current use of insulin ([facility]) Take 1 tablet by mouth once daily 90 tablet 1 09/30/19 23 Active pravastatin (PRAVACHOL) 40 MG tabletIndications: Hyperlipidemia, unspecified hyperlipidemia type Take 1 tablet by mouth once daily 90 tablet 1 09/30/19 23 Active metFORMIN ER (GLUCOPHAGE-XR) 500 MG 24 hr tabletIndications: Type 2 diabetes mellitus with diabetic polyneuropathy, with long-term current use of insulin ([facility]) Take 2 tablets by mouth twice daily 120 tablet 10/31/19 23 Active Active Problems Problem Noted Date Diagnosed Date Vitamin D deficiency 04/22/2022 Morbid (severe) obesity due to excess calories 0 04/22/2022 Current mild episode of gordon r depressive disorder without prior episode 04/22/2022 Benign prostatic hyperplasia , unspecified whether lower urinary tract symptoms present 04/22/2022 DYLON (generalized anxiety disorder) 04/22/2022 Hyperlipidemia associated wi th type 2 diabetes mellitus ([facility]) 09/25/2021 Long-term insulin use ([facility]) 09/26/19 22 Pulmonary emphysema, unspeci fied emphysema type ([facility]) 09/25/2021 Hypertension associated with type 2 diabetes mellitus ([facility]) 08/08/2021 Type 2 diabetes mellitus wit h diabetic polyneuropathy, with long-term current use of insulin ([facility]) 06/27/2021 Degeneration of lumbar or lumbosacral interverte bral disc 06/30/2011 Immunizations Immunization Administration Dates Next Due Flulaval Quad (Multi-Dose Vial) 12/18/2017 Fluzone High Dose - >Age 65 (Prefilled Syringe) 12/16/2021 Influenza (Generic) 11/16/2020, 0,12/14/2018,2017,12/28/2016,11/30/2015,11/30/2013,0 11/29/2012 Influenza Adult (Generic) 12/02/2019,,12/18/2017,2016 Pneumococcal (Pneumovax 23) 12/14/2018, 6 Pneumococcal (Prevnar 13) 12/06/2014 Pneumovax 23 25 Mcg/0.5Ml Ij Inj 12/14/2018,11/28 Shingrix 01/31/2020,12/02/2019 Tdap (Generic) 12/14/2018 Zoster (Zostavax) 16099 Unt/0.65Ml 01/30,12/02/2019,12/07/2014,2014 Family History Medical History Relation Comments Diabetes Brother 1 Mental Health Brother 2 No Known Problems Father No Known Problems Mother No Known Problems Sister 1 No Known Problems Sister 2 Relation Status Comments Brother 1 Alive Brother 2 Alive Father Mother Sister 1 Alive Sister 2 Alive Social History Tobacco Use Types Packs/Day Years Used Date Smoking Tobacco: Every Day Cigarettes 0.5 51.5 Started: 1973 Smokeless Tobacco: Never Tobacco Cessation:Ready to Q uit: Yes; Counseling Given: Yes Comments:[provider to securities counselor Alcohol Use Standard Drinks/Week Comments Not Currently 0 (1 standard drink = 0.6 oz pur e alcohol) PHQ-2 Answer Date Recorded Patient Health Questionnaire-2 Score 3 04/22/2022 Sex and Gender Information Value Date Recorded Sex Assigned at Not on file Legal Sex Male 8:29 AM CDT Gender Identity Not on file Sexual Orientation Not on file Last Filed Vital Signs Vital Sign Reading Time Taken Comments Blood Pressure 124/78 04/22/2022 7:34 AM [employer] Pulse 102 04/22/2022 7:34 AM [employer] Temperature 36.7 C (98.1 F) 04/22/2022 7:34 AM [employer]OR Respiratory Rate 16 04/22/2022 7:34 AM [employer] ADVISOR Oxygen Saturation 92% 04/22/2022 7:34 AM [employer]OR Inhaled Oxygen Concentration - - Weight 122.8 kg (270 lb 12.8 oz) 04/22/2022 7:34 AM [employer]AUT[employer] ADVISOR Height 177.8 cm (5' 10) 04/22/2022 7:34 AM [employer] ADVISOR Body Mass Index 38.86 04/22/2022 7:34 AM [employer] BEAUTY ADVISOR Plan of Treatment Health Maintenance Due Date Last Done Comments Kidney Health Evaluation 1955 RSV Immunization or 60+ Years (1 - Risk 60-74 years 1-dose series) 2015 Annual Medicare Wellness Visit 12/28/2020 Hemoglobin A1C 10/20/2022 04/22/2022, 11/29, 07/04/2021, Additional history exists Lipid Panel 12/18/2022 12/18/2021, 12/12/2020 COVID-19 Vaccine ( season) 2023 12/16/2021, 07/16/2021, 02/11/2021, Additional history exists Pneumococcal Vaccine: 50+ Years (3 of 3 - PCV20 or PCV21) 12/15/2023 12/14/2018, 12/14/2018, 12/08/2015, Additional history exists Diabetes: Retinopathy Eye Exam 01/04/2024 01/03/2022, 01/01/2021 PHQ-2 (Physician [place]) 03/30/2024 DTaP, Tdap and Td Vaccines (2 - Td or Tdap) 12/14/2028 12/14/2018 Colorectal Cancer Screening Colonoscopy (10 Years) 05/30/2032 05/30/2022, 12/08/2016 Zoster Vaccines Completed 01/31/2020, 05/2019, 12/02/2019, Additional history exists Hepatitis C Completed 12/18/2021 Meningococcal B Vaccine Aged Out No l onger eligible based on patient's age to complete this topic Meningococcal Vaccine Aged Out No belem angel eligible based on patient's age to complete this topic RSV Immunizations Under 20 Months Aged Out No longer eligible based on patient's age to complete this topic Procedures Procedure Name Priority Date/Time Associated Diagnosis Comments COLONOSCOPY GENERIC (SCAN ORDER) 05/30/2022 HEMOGLOBIN, GLYCOSYLATED Routine 04/22/2022 Type 2 diabetes mellitus with diabetic polyneuropathy, with long-term current use of insulin DIABETIC RETINOPATHY EXAM (NEGATIVE)(SCAN ORDER) Routine 01/03/2022 HEPATITIS C ANTIBODY Routine 12/18/2021 7:57 AM CDT Type 2 diabetes mellitus with diabetic polyneuropathy, with long-term current use of insulin Hyperlipidemia associated with type 2 diabetes mellitus Hypertension associated with type 2 diabetes mellitus Need for hepatitis C screening test LIPID PANEL Routine 12/18/2021 7:57 AM CDT Type 2 diabetes mellitus with diabetic polyneuropathy, with long-term current use of insulin Hyperlipidemia associated with type 2 diabetes mellitus Hypertension associated with type 2 diabetes mellitus from Last 3 Months or Most Recently Relevant to Health Maintenance Results * COLONOSCOPY GENERIC (05/30/2022) 05/30/2022 us [facility] Scanned SCANNING Final Resu lt * A1C (BACK OFFICE) (04/22/2022) HGB A1C 8.5 % [facility] 04/22/2022 us Kane Treviño DO LABORATORY Final Re sult [facility] [address] [place] [address], [place] * DIABETIC RETINOPATHY EXAM (NEGATIVE)(SCAN) (01/03/2022) [facility] Scanned SCANNING Final Resu lt [facility] ONBASE * LIPID PANEL (12/18/2021 7:57 AM CDT) CHOLESTEROL 146 MG/DL 12/18/2021 3:23 PM CDT [facility] TRIGLYCERIDES 143 <150 MG/DL 12/18/2021 3:23 PM CDT [facility] HDL 44 >40 MG/DL 12/18/2021 3:23 PM CDT [facility] LDL-C 73 MG/DL 12/18/2021 3:23 PM CDT [facility] VLDL CALCULATION 29 MG/DL 12/19/19 3:23 PM CDT [facility] CHOL/HDL RATIO 3.3 12/18/2021 3:23 PM CDT [facility] LDL/HDL 1.7 12/18/2021 3:23 PM CDT [facility] NON HDL CHOLESTEROL 102 MG/DL 12/18/2021 3:23 PM CDT [facility] 12/18/2021 7:57 AM CDT Kane Treviño DO LABORATORY Final Re sult Performing Organization Address City/[facility]/ZIP Co de Phone Number -[facility] [address] [place] [address], * HEPATITIS C ANTIBODY (12/18/2021 7:57 AM CDT) HEPATITIS C AB NON-REACTI VE NON-REACT KEISHA 12/18/2021 6:40 PM CDT [facility] Comment: ANTIBODIES TO HCV NOT DETECTED. DOES NOT EXCLUDE THE POSSIBILITY OF EXPOSURE TO HCV. 12/18/2021 7:57 AM CDT Kane Treviño DO LABORATORY Final Re sult [facility] [address] [place] [address], [phone] from Last 3 Months or Most Recently Relevant to Health Maintenance Insurance [facility]
--- OUTSIDE RECORDS SUMMARY | 2024-10-06 06:47 | XMS_ITS | Patient Health Record ---
Author Organization [facility] Address [address] [place] [address] Care Team Providers Care Carport Erector Name Role Phone Rick Goldman Primary Care Provider Allergies No Known Allergies Results Component Value Reference Range Notes Hemoglobin A1c CLIA Waived Reviewed date:10/03/2024 05:30:45 PM Interpretation: Performing Lab: Notes/Report: Hemoglobin A1c 8.5 4.0 - 6.4 % 14 Panel Urine Drug Screen Reviewed date:10/04/2024 08:45:27 AM Interpretation: Performing Lab: Notes/Report: THC neg CURT neg MOP (OPI) neg AMP neg MET neg BAR neg BZO pos MDMA neg MTD neg OXY pos PCP neg BUP neg TCA neg FTY neg Reason For Referral No Information Medications Medication SIG (Take, Route, Frequency, Duration) Notes Start Date End Date Status DULoxetine HCl 60 MG 1 capsule Orally tw ice a day; Duration: 30 days Active Rybelsus 14 MG 1 tablet at least 30 minutes before first food, beverage or other oral medicine of the day Orally Once a day; Duration: 30 day(s) Active Diclofenac Sodium 75 MG 1 tablet take with food Orally Twice a day; Duration: 30 days As needed pain 10/03/2024 Active Pioglitazone HCl 45 MG 1 tablet Orally O nce a day; Duration: 30 day(s) Active Losartan Potassium 100 MG 1 tablet Orall y Once a day; Duration: 30 day(s) Active Ketoconazole 2 % 1 application Germ Drier ally Once a day; Duration: 14 day(s) Active Aspirin 81 MG 1 tablet Orally Once a day; Duration: 30 day(s) Active Multivitamin - 1 tablet Orally Once a day Active rOPINIRole HCl 0.5 MG 1 tablet 1 to 3 ho urs before bedtime Orally Once a day; Duration: 30 day(s) Activ e diazePAM 10 MG 1 tablet as needed Orally 3 times a day; Duration: 30 days As needed severe anxiety 10/03/2024 Active metFORMIN HCl 500 MG two tablets twice a day Orally Once a day; Duration: 30 day(s) Active glipiZIDE 5 MG 1 tablet 30 minutes before breakfast Orally Once a day; Duration: 30 day(s) Active oxyCODONE HCl 10 MG 1 tablet as needed O rally every 6 hrs Active Social History Tobacco Use: Social History Observation Description Date Details (start date - stop date) Smoker, current status unknown NA - NA Tobacco Control (Standard) Question Answer Notes Tobacco use: Smoker, current status unknown Problems Problem Type SNOMED Code ICD Code Onset Dates Problem Status W/U Status Risk Notes Problem Polyneuropathy due to type 2 diabetes mellitus (604080177) Type 2 diabetes mellitus with diabetic polyneuropathy (E11.42) Active confirmed Problem Cervicalgia (79463322) Cervicalgia (M54.2) Active confirmed Problem Osteoarthritis (310392551) Osteoarthritis (M19.90) Active confirmed Problem Over weight (E66.3) Active confirmed Problem Benzodiazepine dependence (329882926) Benzodiazepine dependence (F13.20) Active confirmed Problem Cigarette smoker (94782410) Cigarette smoker (F17.210) Active confirmed Vital Signs Heart Rate 80 /min 10/03/2024 Temperature 98.4 degrees Fahrenheit 10/03/2024 Respiratory Rate 16 /min 10/03/2024 Blood pressure diastolic 72 mm Hg 10/03/2024 Oximetry 98 % 10/03/2024 Height 70 in 10/03/2024 Blood pressure systolic 128 mm Hg 10/03/2024 Weight 248.0 lbs 10/03/2024 BMI 35.58 kg/m2 10/03/2024 Encounters Encounter Location Date Provider Diagnosis [place] [address] [place] [address] 10/03/2024 Rick Goldman Over weight E66.3 ; Type 2 diabetes mellitus with diabetic polyneuropathy E11.42 ; Dorsalgia of lumbosacral region M54.50 ; Cervicalgia M54.2 ; Osteoarthritis M19.90 ; Exposure to potential infection Z20.9 ; Benzodiazepine dependence F13.20 ; Opioid use F11.90 ; Fatigue R53.83 and Cigarette smoker F17.210 Assessments Encounter Date Diagnosis (ICD Code) Assessment Notes Treatment Notes Treatment Clinical Notes Section Notes 10/03/2024 Type 2 diabetes mellitus with diabetic polyneuropathy (ICD-10 - E11.42) 10/03/2024 Over weight (ICD-10 - E66.3) 10/03/2024 Dorsalgia of lumbosacral region (ICD-10 - M54.50) f/u [facility] 10/03/2024 Cervicalgia (ICD-10 - M54.2) 10/03/2024 Osteoarthritis (ICD-10 - M19.90) 10/03/2024 Exposure to potential infection (ICD-10 - Z20.9) 10/03/2024 Benzodiazepine dependence (ICD-10 - F13.20) 10/03/2024 Opioid use (ICD-10 - F11.90) 10/03/2024 Fatigue (ICD-10 - R53.83) 10/03/2024 Cigarette smoker (ICD-10 - F17.210) ABSTAINING SINCE 10/02/24 Plan Of Treatment Future Test Test Name Order Date Vitamin B12 and Folate 10/03/2024 Iron and TIBC* 10/03/2024 CBC With Differential/Platelet* 10/04/19 25 Hepatitis B Surface Antigen (HBsAg Scree n) 10/03/2024 Hepatitis C Virus Antibody w/Rflx to Oliver ntitative Real-time PCR (407369) 10/03/2024 Lipid Panel* 10/03/2024 CMP 14 Comprehensive Metabolic Panel* TSH Rfx on Abnormal to Free T4 5 HIV-1, Quantitative, Real-time PCR 10/03 Rapid Plasma Reagin (RPR) Te st With Reflex to Quantitative RPR and Confirmatory Treponema pallidum Antibodies 10/03/2024 Insurance Providers Payer Name Payer Address Payer Phone Subscriber Number Group Number Insured Name Patient Relationship to Insured Coverage Start Date Coverage End Date [facility] [address] [place] [address] [id number] Lefty Darnell Self - patient is the insured 5 Medical (General) History Medical History History ICD Code Spinal stenosis herniated discs type 2 Diabetes hypertension Surgical History Surgery Date(Month/Year) Knee replacements both knees 2009 Hospitalization History Reason Date(Month/Year)
[2024-10-06 07:27] LABS: Hematocrit 36.0 % (42.0-52.0); Hemoglobin 11.7 g/dL (14.0-18.0); Immature Granulocyte Percent A 0.5 % (0-0.5); Lymphocytes Absolute Auto 1.67 K/mm3 (0.9-3.2); Mean Corpuscular HGB Conc 32.5 g/dl (32-36); Mean Corpuscular Hemoglobin 29.5 pg (26-34); Mean Corpuscular Volume 90.9 fl (80-100); Nucleated Red Blood Cells Absolute Auto 0.000 K/mm3 (0.0-0.012); Nucleated Red Blood Cells Perc 0.0 % (0.0-0.2); Platelet Count Result 243 k/mm3 (150-375); Red Blood Count 3.96 M/mm3 (4.6-6.20); White Blood Count 6.0 K/mm3 (4.5-10.0)
[2024-10-06 07:38] LABS: Alanine Aminotransferase 18 U/L (6-50); Albumin Level 4.0 g/dL (3.5-5.1); Alkaline Phosphatase 96 U/L (38-126); Anion Gap 7 mmol/L (4-12); Aspartate Amino Transferase 22 U/L (17-59); Bilirubin,Total 0.3 mg/dL (0.2-1.3); Blood Urea Nitrogen 17 mg/dL (9-20); Calcium 9.3 mg/dL (8.4-10.2); Carbon Dioxide 27 mmol/L (22-30); Chloride 104 mmol/L (98-107); Cholesterol 138 mg/dL (0-200); Estimated Glomerular Filt Rate > 60; Glucose 221 mg/dL (65-110); HDL Direct 57 mg/dL; Potassium 4.2 mmol/L (3.4-5.0); Sodium 138 mmol/L (137-145); Total Protein 6.9 g/dL (6.3-8.2); Triglycerides 167 mg/dL (<150)
[2024-10-06 07:39] LABS: Iron 112 ug/dL (49-181)
[2024-10-06 07:49] LABS: Percent Iron Saturation 31 % (20-50)
[2024-10-06 08:11] LABS: Thyroid Stimulating Hormone Reflex 2.880 uIU/mL (0.465-4.68)
[2024-10-06 08:19] LABS: HIV 1/2 Ab P24 Ag Result Negative (Negative)
[2024-10-06 08:44] LABS: Vitamin B12 360.0 pg/mL (239-931)
[2024-10-06 10:04] LABS: Hepatitis B Surface Antigen Negative (Negative)
[2024-10-06 10:34] LABS: Syphilis IgG/IgM Antibody Non-Reactive (Nonreactive)
== END 2024-10-06 06:43 | disposition home or self-care (01) ==
PROVIDERS: PCP Internal Medicine; Visit Provider Internal Medicine
DX: E11.42 Type 2 diabetes mellitus with diabetic polyneuropathy (principal); R53.83 Other fatigue; Z20.9 Contact with and (suspected) exposure to unspecified communicable disease
CPT/HCPCS: 36415; 80053; 80061; 82607; 82746; 83540; 83550; 84443; 85025; 86593; 86703; 86803; 87340; G0432

== ENCOUNTER 2024-10-31 11:18 | Outpatient (CLI) | payer MEDICARE, SELFPAY ==
--- OUTSIDE RECORDS SUMMARY | 2024-10-31 11:45 | XMS_ITS ---
Author Organization [facility] Address [address] [place] [address] Care Team Providers Care Bulk Tank Driver Name Role Phone Rick Goldman Primary Care Provider REASON FOR VISIT est pcp Encounters Encounter Location Date Provider Diagnosis [address] [address] 08/18/2024 Rick Goldman Plan Of Treatment No Information Progress Notes * Darnell FLORES SrDOB: (68 yo M)Acc No.[id number]:08/18/2024 UNLOCKED PROGRESS NOTE Progress Notes Patient: Darnell KWAN Sr Provider: Savannah Goldman :1955 A ge:68 Y S ex:Male Date:08/18/2024 Address:[address] [place], [place] [id number] Subjective: * Chief Complaints: * 1 . Est pcp. * Medical History: Objective: * Vitals: Assessment: Plan: * Treatment: * * Electronic signature of Cliff Goldman , [id number] on 10/31/2024 at 11:44 AM CDT Sign off status: Pending * Provider: Savannah Goldman Date: 08/18/2024 Generated for Yuval de guzman/Raine/eTransmitting on: 0 10/31/2024 11:44 AM CDT
--- OUTSIDE RECORDS SUMMARY | 2024-10-31 11:45 | XMS_ITS | Clinical Summary ---
Author Organization [facility] Address [facility] [place] [address] Care Team Providers Care Engineering Design Supervisor Name Role Phone Unavailable Primary Care Provider Unavailabl e Allergies Active Allergy Reactions Criticality Noted Date Comments Duloxetine Hcl Other (see comment) 01/11/2021 Leon like he was on speed Medications NARCAN [...] polyneuropathy, with long-term current use of insulin ([facility]) 1 strip by Other route 4 (four) times daily. 400 strip 1 05/13/19 22 Active Lancets MiscIndications:Ty pe 2 diabetes mellitus with diabetic polyneuropathy, with long-term current use of insulin ([facility] H[facility]/HCC) Test 4 times daily 400 each 1 08/20/19 22 Active buPROPion XL (WELLBUTRIN XL) 150 MG 24 hr tabletIndications: Anxiety Take 3 tablets (450 mg total) by mouth daily. 90 tablet 2 10/30/19 22 Active Glucose Blood (CONTOUR TEST) test stripIndications:T ype 2 diabetes mellitus with diabetic polyneuropathy, with long-term current use of insulin ([facility]) 1 strip by Other route as needed. Test four times daily 400 strip 1 01/25/20 22 Active Blood Glucose Monitoring Suppl (CONTOUR NEXT MONITOR) w/Device KitIndications:Typ e 2 diabetes mellitus with diabetic polyneuropathy, with long-term current use of insulin ([facility]) Use daily as directed 1 kit 01/30/20 22 Active fluticasone-salmet selma (WIXELA INHUB) 500-50 MCG/ACT inhalerIndications :Pulmonary emphysema, unspecified emphysema type ([facility]) Inhale 1 puff into the lungs 2 [...] polyneuropathy, with long-term current use of insulin ([facility]) Inject 45 Units into the skin every morning AND 5 Units every evening. 9 pen 2 05/22/19 23 Active propranolol LA (INDERAL LA) 80 MG 24 hr capsuleIndications :Hypertension associated with type 2 diabetes mellitus ([facility]) Take 1 capsule by mouth once daily [...] polyneuropathy, with long-term current use of insulin ([facility]) USE 1 STRIP TO CHECK GLUCOSE 4 TIMES DAILY NEEDED 400 strip 08/15/19 23 Active BD PEN NEEDLE LAURA 2ND GEN 32G X 4 MM MiscIndications:Ty pe 2 diabetes mellitus with diabetic polyneuropathy, with long-term current use of insulin ([facility]) USE TO INJECT INSULIN ONCE DAILY 100 each 08/15/19 23 Active glipiZIDE (GLUCOTROL) 10 MG tabletIndications: Type 2 diabetes mellitus with diabetic polyneuropathy, with long-term current use of insulin ([facility]) Take 1 tablet by mouth twice daily 180 tablet 09/30/19 23 Active losartan (COZAAR) 100 MG tabletIndications: Type 2 diabetes mellitus with diabetic polyneuropathy, with long-term current use of insulin ([facility]) Take 1 tablet by mouth once daily 90 tablet 1 09/30/19 23 Active pravastatin (PRAVACHOL) 40 MG tabletIndications: Hyperlipidemia, unspecified hyperlipidemia type Take 1 tablet by mouth once daily 90 tablet 1 09/30/19 23 Active metFORMIN ER (GLUCOPHAGE-XR) 500 MG 24 hr tabletIndications: Type 2 diabetes mellitus with diabetic polyneuropathy, with long-term current use of insulin ([facility]) Take 2 tablets by mouth twice daily [...] associated wi th type 2 diabetes mellitus ([facility]) 09/25/2021 Long-term insulin use ([facility]) 09/26/19 22 Pulmonary emphysema, unspeci fied emphysema type ([facility]) 09/25/2021 Hypertension associated with type 2 diabetes mellitus ([facility]) 08/08/2021 Type 2 diabetes mellitus wit h diabetic polyneuropathy, with long-term current use of insulin ([facility]) 06/27/2021 Degeneration of lumbar or lumbosacral interverte bral disc 06/30/2011 Immunizations Immunization Administration Dates Next Due Flulaval Quad (Multi-Dose Vial) 12/18/2017 Fluzone High Dose - >Age 65 (Prefilled Syringe) 12/16/2021 Influenza (Generic) 11/16/2020, 0,12/14/2018,2017,12/28/2016,11/30/2015,11/30/2013,0 11/29/2012 Influenza Adult (Generic) 12/02/2019,,12/18/2017,2016 Pneumococcal (Pneumovax 23) 12/14/2018, 6 Pneumococcal (Prevnar 13) 12/06/2014 Pneumovax 23 25 Mcg/0.5Ml Ij Inj 12/14/2018,11/28 Shingrix 01/31/2020,12/02/2019 Tdap (Generic) 12/14/2018 Zoster (Zostavax) 14211 Unt/0.65Ml 01/30,12/02/2019,12/07/2014,2014 Family History Medical History Relation [...] Date Smoking Tobacco: Every Day Cigarettes 0.5 51.6 Started: 1973 Smokeless Tobacco: Never Tobacco Cessation:Ready to Q uit: Yes; Counseling Given: Yes Comments:[provider to alcoholic counselor Alcohol Use Standard Drinks/Week Comments Not [...] Comments Blood Pressure 124/78 04/22/2022 7:34 AM AUTOMOTIVE F[employer]EL SYSTEM[employer] CONVERTER Pulse 102 04/22/2022 7:34 AM AUTOMOTIVE [employer] CON[employer]TER Temperature 36.7 C (98.1 F) 04/22/2022 7:34 AM AUTOMOTIVE [employer]EL [employer] CON[employer]TER Respiratory Rate 16 04/22/2022 7:34 AM AUTOMOTIVE [employer]EL [employer] CON[employer]TER Oxygen Saturation 92% 04/22/2022 7:34 AM AUTOMOTIVE [employer] CON[employer]TER Inhaled Oxygen Concentration - - Weight 122.8 kg (270 lb 12.8 oz) 04/22/2022 7:34 AM AUTOMOTIVE [employer]EL [employer] CON[employer]TER Height 177.8 cm (5' 10) 04/22/2022 7:34 AM AUTOMOTIVE [employer] CON[employer]TER Body Mass Index 38.86 04/22/2022 7:34 AM AUTOMOTIVE F[employer]EL SYSTEM[employer] CONVERTER Plan of Treatment Health Maintenance Due Date [...] Eye Exam 01/04/2024 01/03/2022, 01/01/2021 PHQ-2 (Physician [place]) 03/30/2024 DTaP, Tdap and Td Vaccines (2 [...] (BACK OFFICE) (04/22/2022) HGB A1C 8.5 % [facility] 04/22/2022 us Kane Treviño DO LABORATORY Final Re sult [facility] [address] [place] [address], [place] * DIABETIC RETINOPATHY EXAM (NEGATIVE)(SCAN) (01/03/2022) [facility] Scanned SCANNING Final Resu lt [facility] ON[facility] * LIPID PANEL (12/18/2021 7:57 AM CDT) CHOLESTEROL 146 MG/DL 12/18/2021 3:23 PM CDT [facility] TRIGLYCERIDES 143 <150 MG/DL 12/18/2021 3:23 PM CDT [facility] HDL 44 >40 MG/DL 12/18/2021 3:23 PM CDT [facility] LDL-C 73 MG/DL 12/18/2021 3:23 PM CDT [facility] VLDL CALCULATION 29 MG/DL 12/19/19 3:23 PM CDT [facility] CHOL/HDL RATIO 3.3 12/18/2021 3:23 PM CDT [facility] LDL/HDL 1.7 12/18/2021 3:23 PM CDT [facility] NON HDL CHOLESTEROL 102 MG/DL 12/18/2021 3:23 PM CDT [facility] 12/18/2021 7:57 AM CDT Kane Treviño DO LABORATORY Final Re sult Performing Organization Address City/[facility]/ZIP Co de Phone Number [facility] [address] [place] [address], * HEPATITIS C ANTIBODY (12/18/2021 7:57 AM CDT) HEPATITIS C AB NON-REACTI VE NON-REACT KEISHA 12/18/2021 6:40 PM CDT [facility] Comment: ANTIBODIES TO HCV NOT DETECTED. DOES NOT EXCLUDE THE POSSIBILITY OF EXPOSURE TO HCV. 12/18/2021 7:57 AM CDT Kane Treviño DO LABORATORY Final Re sult [facility] [address] [place] [address], [id number] from Last 3 Months or Most Recently Relevant to Health Maintenance Insurance [facility]
--- OUTSIDE RECORDS SUMMARY | 2024-10-31 11:45 | XMS_ITS | Clinical Summary ---
Author Organization [facility] [employer] Address [address] [place] [address] Care Team Providers Care Winder Operator Name Role Phone Rick Goldman MD Primary Care Provider [phone] Source Comments [facility] [employer],non-owned Affiliates and Associated Physician Practices is amultiple site organization consisting of ambulatory clinics and hospital sitesin [place], [place], [place] and [place]. This disclosure is being madepursuant to the Care Everywhere program and may not contain all information available regarding this patient. 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
--- OUTSIDE RECORDS SUMMARY | 2024-10-31 11:45 | XMS_ITS | Patient Health Record ---
Author Organization [facility] Address [address] [place] [address] Care Team Providers Care Preparation Supervisor Freezing Name Role Phone Rick Goldman Primary Care Provider [phone] Allergies No Known Allergies Results Component Value [...] Duration) Notes Start Date End Date Status glipiZIDE 5 MG 1 tablet 30 minutes before breakfast Orally Once a day; Duration: 30 day(s) Active diazePAM 10 MG 1 tablet as needed Orally 3 times a day; Duration: 30 days As needed severe anxiety 10/03/2024 Active Multivitamin - 1 tablet Orally Once a day Active DULoxetine HCl 60 MG 1 capsule Orally tw ice a day; Duration: 30 days Active Diclofenac Sodium 75 MG 1 tablet take with food Orally Twice a day; Duration: 30 days As needed pain 10/03/2024 Active Rybelsus 14 MG 1 tablet at least 30 minutes before first food, beverage or other oral medicine of the day Orally Once a day; Duration: 30 day(s) Active Pioglitazone HCl 45 MG 1 tablet Orally O nce a day; Duration: 30 day(s) Active Methadone HCl 5 MG 1 tablet Orally ever y 12 hours; Duration: 7 days 10/28/2024 Active Losartan Potassium 100 MG 1 tablet Orall y Once a day; Duration: 30 day(s) Active Ketoconazole 2 % 1 application Pourer ally Once a day; Duration: 14 day(s) Active Aspirin 81 MG 1 tablet Orally Once a day; Duration: 30 day(s) Active rOPINIRole HCl 0.5 MG 1 tablet 1 to 3 ho urs before bedtime Orally Once a day; Duration: 30 day(s) Activ e metFORMIN HCl 500 MG two tablets twice a day Orally Once a day; Duration: 30 day(s) Active Social History Tobacco Use: Social History Observation Description Date Details (start date - stop date) Never Smoker NA - NA Tobacco Control (Standard) Question Answer Notes Tobacco use: Nonsmoker Problems Problem Type SNOMED Code ICD Code Onset Dates Problem Status W/U Status Risk Notes Problem Polyneuropathy due to type 2 diabetes mellitus (847473910) Type 2 diabetes mellitus with diabetic polyneuropathy (E11.42) Active confirmed Problem Cervicalgia (85909854) Cervicalgia (M54.2) Active confirmed Problem Osteoarthritis (315674789) Osteoarthritis (M19.90) Active confirmed Problem Overweight (904320853) Over weight (E66.3) Active confirmed Problem Benzodiazepine dependence (465714582) Benzodiazepine dependence (F13.20) Active confirmed Problem Anemia of chronic disease (651361137) Anemia of chronic disease (D63.8) Active confirmed Problem Cigarette smoker (90563095) Cigarette smoker (F17.210) Active confirmed Vital Signs Heart Rate 88 /min 10/28/2024 Temperature 98.6 degrees Fahrenheit 10/28/2024 Respiratory Rate 20 /min 10/28/2024 Blood pressure diastolic 70 mm Hg 10/28/2024 Oximetry 100 % 10/28/2024 Height 70 in 10/28/2024 Blood pressure systolic 128 mm Hg 10/28/2024 Weight 248.2 lbs 10/28/2024 BMI 35.61 kg/m2 10/28/2024 Encounters Encounter Location Date Provider Diagnosis [facility] [address] [place] [address] 10/03/2024 Rick Goldman Over weight E66.3 ; Type 2 diabetes mellitus with diabetic polyneuropathy E11.42 ; Dorsalgia of lumbosacral region M54.50 ; Cervicalgia M54.2 ; Osteoarthritis M19.90 ; Exposure to potential infection Z20.9 ; Benzodiazepine dependence F13.20 ; Opioid use F11.90 ; Fatigue R53.83 and Cigarette smoker F17.210 [facility] [address] [place] [address] 10/28/2024 Rick Goldman Cervicalgia M54.2 ; Dorsalgia of lumbosacral region M54.50 ; Osteoarthritis M19.90 ; Anemia of chronic disease D63.8 ; Type 2 diabetes mellitus with diabetic polyneuropathy E11.42 ; Benzodiazepine dependence F13.20 ; Over weight E66.3 and Opioid use F11.[address] [address] 10/31/2024 Rick Goldman [address] [address] 10/10/2024 Rick Goldman [address] [place] [address] 10/20/2024 Rick Goldman Assessments Encounter Date Diagnosis (ICD Code) Assessment Notes Treatment Notes Treatment Clinical Notes Section Notes 10/03/2024 Type 2 diabetes mellitus with diabetic polyneuropathy (ICD-10 - E11.42) 10/03/2024 Over weight (ICD-10 - E66.3) 10/28/2024 Cervicalgia (ICD-10 - M54.2) 10/28/2024 Dorsalgia of lumbosacral region (ICD-10 - M54.50) SEE [facility] 10/28/2024 Osteoarthritis (ICD-10 - M19.90) 10/03/2024 Dorsalgia of lumbosacral region (ICD-10 - M54.50) f/u WITH [facility] 10/28/2024 Anemia of chronic disease (ICD-10 - D63.8) 10/03/2024 Cervicalgia (ICD-10 - M54.2) 10/03/2024 Osteoarthritis (ICD-10 - M19.90) 10/28/2024 Type 2 diabetes mellitus with diabetic polyneuropathy (ICD-10 - E11.42) 10/28/2024 Benzodiazepine dependence (ICD-10 - F13.20) 10/03/2024 Exposure to potential infection (ICD-10 - Z20.9) 10/03/2024 Benzodiazepine dependence (ICD-10 - F13.20) 10/28/2024 Over weight (ICD-10 - E66.3) 10/28/2024 Opioid use (ICD-10 - F11.90) 10/03/2024 Opioid use (ICD-10 - F11.90) 10/03/2024 Fatigue (ICD-10 - R53.83) 10/03/2024 Cigarette smoker (ICD-10 - F17.210) ABSTAINING SINCE 10/02/24 Plan Of Treatment Future Test Test Name Order Date Vitamin B12 and Folate 10/03/2024 Iron and TIBC* 10/03/2024 CBC With Differential/Platelet* 10/04/19 Hepatitis B Surface Antigen (HBsAg Scree n) 10/03/2024 Hepatitis C Virus Antibody w/Rflx to Oliver ntitative Real-time PCR (270373) 10/03/2024 Lipid Panel* 10/03/2024 CMP 14 Comprehensive Metabolic Panel* TSH Rfx on Abnormal to Free T4 5 HIV-1, Quantitative, Real-time PCR 10/03 Rapid Plasma Reagin (RPR) Te st With Reflex to Quantitative RPR and Confirmatory Treponema pallidum Antibodies 10/03/2024 Insurance Providers Payer Name Payer Address Payer Phone Subscriber Number Group Number Insured Name Patient Relationship to Insured Coverage Start Date Coverage End Date [facility] [address] [place] [address] [id number] Darnell Olea Self - patient is the insured 5 Medical (General) History Medical History History ICD Code Spinal stenosis herniated discs type 2 Diabetes hypertension Surgical History Surgery Date(Month/Year) Knee replacements both knees 2009 Hospitalization History Reason Date(Month/Year)
--- NOTE | 2024-10-31 12:39 | ECG_ITS ---
Test Date: 2024-10-31 13:01:03 Measurements Intervals [place] Rate: 72 P: 37 WI: 179 QRS: 10 QRSD: 89 T: 41 QT: 362 QTc: 396 Interpretive Statements SINUS RHYTHM BASELINE ARTIFACT- I, II, III, AVR, AVL, AVF, V1-V6 NORMAL ECG No previous ECG available for comparison Electronically Signed On 10-31-2024 13:09:13 CDT by Giovani Sears D.O.
[2024-10-31 13:32] LABS: Hemoglobin A1C 7.7 % (<5.7)
[2024-10-31 13:35] LABS: Add Urine Microscopic? YES; Appearance Urine Clear (Clear); Glucose Urine UA Negative (Negative); Leukocyte Esterase Ur 1+ LEU/UL (Negative); Need Manual Microscopic Reviewed; Nitrate Urine Negative (Negative); Non Pathogenic Casts 0-2; Specific Grav Ur 1.017 (1.001-1.035)
[2024-10-31 13:44] LABS: INR 1.0; Prothrombin Time 13.4 Seconds (11.1-14.7)
[2024-10-31 13:45] LABS: Partial Thromboplastin Time 30.1 Seconds (22.3-36.8)
== END 2024-10-31 11:19 | disposition home or self-care (01) ==
LOC: ANHSURGERY 11:22
PROVIDERS: PCP Internal Medicine; Visit Provider Neurological Surgery
DX: M43.16 Spondylolisthesis, lumbar region (principal); Z01.818 Encounter for other preprocedural examination
CPT/HCPCS: 36415; 81001; 83036; 85610; 85730; 87086; 93005

== ENCOUNTER 2024-11-15 01:18 | Day surgery (SDC) | payer MEDICARE, SELFPAY ==
[2024-10-31 11:51] VITALS: BP 111/84; PULSE 86; RESP 16; TEMP 36.5; O2SAT 99; BMI 35.0
--- NOTE | 2024-10-31 12:14 | PC.NURSE ---
Report to the Outpatient Waiting Room, entrance under the green pavilion located off [facility], at time __10:30AM___ on date ____11/15/24___. Planned Procedure Time: ___12:30PM___.? Time changes happen often and if your time is changed the preop area will call you the afternoon before. - You and your visitor will be asked to self-screen and do not enter if you have any COVID symptoms. Please call surgeon if you need to reschedule. - A mask is optional within the hospital at this time. Patients may have clear liquids (water, carbonated beverages, clear teas, apple juice) until 3 hours prior to surgery (9:30AM) with a maximum of 20 ounces. - No food from midnight until time of surgery and no smoking, or chewing tobacco (or any form of nicotine). No chewing gum, candy or mints. Take only the following medications with a SIP of water on the morning of surgery: ____DULOXETINE___ MAY TAKE DIAZEPAM, OXYCODONE, ALBUTEROL INHALER NEEDED DO NOT STOP ANY OF YOUR OTHER PRESCRIPTION MEDICATIONS PRIOR TO SURGERY EXCEPT THE FOLLOWING Hold all vitamins and supplements for 3 days per anesthesiologist. LAST DOSE 11/11/24 Medications to discontinue per physician ____HOLD ASPIRIN AND DICLOFENAC(ALL NSAIDS) 7 DAYS PRE-OP PER DR ROMEO Date to take last dose 11/07/24 Please no make-up, nail greek, hairspray, perfume, deodorant, or body powder the day of surgery.? No jewelry (including any body piercings) or valuables the day of surgery, leave them at home.? Please take a shower or bath the night before, or the morning of, surgery with an antibacterial soap.? Wear comfortable, loose fitting clothing.? - Jewelry must be removed prior to entering the operating room.? Rings and piercings that are not removed may be cut off. - The hospital will not accept responsibility for valuables.? - Please leave all valuables, including medications, at home the day of surgery. If you are going home after surgery, a licensed street flusher driver must drive you home.? - NO public transportation without another adult if you receive anesthesia. - We recommend that an adult stay with you for 24 hours following discharge. - We also recommend that you do not drive, make important decision, drink alcoholic beverages, or take any drugs that were not prescribed by your health care provider for at least 24 hours after your discharge time. Follow any additional instructions given to you from your surgeon. Telephone instructions given to ___PATIENT and asked if any additional questions and then verbalized understanding. Patient advised to call surgeon office or pre surgery nurse liaison [phone] if any additional questions.
[2024-11-15] VITALS (15 sets, daily range): BP systolic 107–145; BP diastolic 54–101; PULSE 81–94; RESP 11–22; TEMP 36.1–36.6; O2SAT 94–100
--- NOTE | ~2024-11-15 | XR_ITS ---
Indication: L4-5 posterior lumbar interbody fusion TECHNIQUE: Fluoroscopy used during L4-5 posterior lumbar interbody fusion performed by [Rigo Cary MD] on 11/15/2024. Fluoroscopy time is 7 seconds with 2 fluoroscopic images captured. FINDINGS: Correlate with procedure note. IMPRESSION: Fluoroscopy used during L4-5 posterior lumbar interbody fusion. Reviewed, dictated and finalized at location A.
--- OUTSIDE RECORDS SUMMARY | 2024-11-15 01:21 | XMS_ITS | Patient Health Record ---
Author Organization [facility] Address [address] [place] [address] Care Team Providers Care Private Client Advisor Name Role Phone Rick Goldman Primary Care Provider [phone] Allergies No Known Allergies Results Component Value [...] Duration) Notes Start Date End Date Status Multivitamin - 1 tablet Orally Once a day Active diazePAM 10 MG 1 tablet as needed Orally 3 times a day; Duration: 15 days As needed severe anxiety 11/01/2024 Active Diclofenac Sodium 75 MG 1 tablet take with food Orally Twice a day; Duration: 30 days As needed pain 10/03/2024 Active oxyCODONE HCl 10 MG 1 tablet as needed O rally every 6 hrs; Duration: 7 days 11/07/2024 Active Aspirin 81 MG 1 tablet Orally Once a day; Duration: 30 day(s) Active Rybelsus 14 MG 1 tablet at least 30 minutes before first food, beverage or other oral medicine of the day Orally Once a day; Duration: 30 day(s) Active rOPINIRole HCl 0.5 MG 1 tablet 1 to 3 ho urs before bedtime Orally Once a day; Duration: 90 days Active metFORMIN HCl 500 MG two tablets twice a day Orally Once a day; Duration: 30 day(s) Active Losartan Potassium 100 MG 1 tablet Orall y Once a day; Duration: 30 day(s) Active Pioglitazone HCl 45 MG 1 tablet Orally O nce a day; Duration: 30 day(s) Active glipiZIDE 5 MG 1 tablet 30 minutes before breakfast Orally Once a day; Duration: 30 day(s) Active DULoxetine HCl 60 MG 1 capsule Orally tw ice a day; Duration: 30 days Active Ketoconazole 2 % 1 application Duster Tender ally Once a day; Duration: 14 day(s) Active Social History Tobacco Use: Social History Observation Description Date Details (start date - stop date) Never Smoker NA - NA Tobacco Control (Standard) Question Answer Notes Tobacco use: Nonsmoker Problems Problem Type SNOMED Code ICD Code Onset Dates Problem Status W/U Status Risk Notes Problem Polyneuropathy due to type 2 diabetes mellitus (857847199) Type 2 diabetes mellitus with diabetic polyneuropathy (E11.42) Active confirmed Problem Cervicalgia (98032440) Cervicalgia (M54.2) Active confirmed Problem Osteoarthritis (737366422) Osteoarthritis (M19.90) Active confirmed Problem Restless legs syndrome (85973495) Restless leg syndrome (G25.81) Active confirmed Problem Overweight (573754827) Over weight (E66.3) Active confirmed Problem Benzodiazepine dependence (262608740) Benzodiazepine dependence (F13.20) Active confirmed Problem Anemia of chronic disease (818896769) Anemia of chronic disease (D63.8) Active confirmed Problem Cigarette smoker (11927845) Cigarette smoker (F17.210) Active confirmed Vital Signs Heart Rate 92 /min 11/07/2024 Temperature 98.8 degrees Fahrenheit 11/07/2024 Respiratory Rate 18 /min 11/07/2024 Blood pressure diastolic 80 mm Hg 11/07/2024 Oximetry 96 % 11/07/2024 Height 70 in 11/07/2024 Blood pressure systolic 122 mm Hg 11/07/2024 Weight 246.0 lbs 11/07/2024 BMI 35.29 kg/m2 11/07/2024 Encounters Encounter Location Date Provider Diagnosis [facility] [place] [address] 10/03/2024 Rick Goldman Over weight E66.3 ; Type 2 diabetes mellitus with diabetic polyneuropathy E11.42 ; Dorsalgia of lumbosacral region M54.50 ; Cervicalgia M54.2 ; Osteoarthritis M19.90 ; Exposure to potential infection Z20.9 ; Benzodiazepine dependence F13.20 ; Opioid use F11.90 ; Fatigue R53.83 and Cigarette smoker F17.210 [facility] [address] [address] 10/28/2024 Rick Goldman Cervicalgia M54.2 ; Dorsalgia of lumbosacral region M54.50 ; Osteoarthritis M19.90 ; Anemia of chronic disease D63.8 ; Type 2 diabetes mellitus with diabetic polyneuropathy E11.42 ; Benzodiazepine dependence F13.20 ; Over weight E66.3 and Opioid use F11.90 [facility] [address] [address] 11/07/2024 Rick Goldman Cervicalgia M54.2 ; Dorsalgia of lumbosacral region M54.50 ; Osteoarthritis M19.90 ; Over weight E66.3 ; Type 2 diabetes mellitus with diabetic polyneuropathy E11.42 ; Benzodiazepine dependence F13.20 ; Anemia of chronic disease D63.8 and Restless leg syndrome G25.[address] [address] 10/10/2024 Rick Goldman [address] [address] 10/20/2024 Rick Goldman [address] [place] [address] 10/31/2024 Rick Goldman Benzodiazepine dependence F13.20 and Type 2 diabetes mellitus with diabetic polyneuropathy E11.[address] [place] [address] 11/07/2024 Rick Goldman Assessments Encounter Date Diagnosis (ICD Code) Assessment Notes Treatment Notes Treatment Clinical Notes Section Notes 10/03/2024 Type 2 diabetes mellitus with diabetic polyneuropathy (ICD-10 - E11.42) 10/03/2024 Over weight (ICD-10 - E66.3) 10/28/2024 Cervicalgia (ICD-10 - M54.2) 10/28/2024 Dorsalgia of lumbosacral region (ICD-10 - M54.50) SEE [facility] 10/31/2024 Benzodiazepine dependence (ICD-10 - F13.20) 11/07/2024 Cervicalgia (ICD-10 - M54.2) 11/07/2024 Dorsalgia of lumbosacral region (ICD-10 - M54.50) 11/07/2024 Osteoarthritis (ICD-10 - M19.90) 10/31/2024 Type 2 diabetes mellitus with diabetic polyneuropathy (ICD-10 - E11.42) 10/28/2024 Osteoarthritis (ICD-10 - M19.90) 10/03/2024 Dorsalgia of lumbosacral region (ICD-10 - M54.50) f/u WITH [facility] 10/28/2024 Anemia of chronic disease (ICD-10 - D63.8) 10/03/2024 Cervicalgia (ICD-10 - M54.2) 11/07/2024 Over weight (ICD-10 - E66.3) 11/07/2024 Type 2 diabetes mellitus with diabetic polyneuropathy (ICD-10 - E11.42) 10/03/2024 Osteoarthritis (ICD-10 - M19.90) 10/28/2024 Type 2 diabetes mellitus with diabetic polyneuropathy (ICD-10 - E11.42) 10/03/2024 Exposure to potential infection (ICD-10 - Z20.9) 11/07/2024 Benzodiazepine dependence (ICD-10 - F13.20) 10/28/2024 Benzodiazepine dependence (ICD-10 - F13.20) 11/07/2024 Anemia of chronic disease (ICD-10 - D63.8) 10/03/2024 Benzodiazepine dependence (ICD-10 - F13.20) 10/28/2024 Over weight (ICD-10 - E66.3) 10/28/2024 Opioid use (ICD-10 - F11.90) 10/03/2024 Opioid use (ICD-10 - F11.90) 11/07/2024 Restless leg syndrome (ICD-10 - G25.81) 10/03/2024 Fatigue (ICD-10 - R53.83) 10/03/2024 Cigarette smoker (ICD-10 - F17.210) ABSTAINING SINCE 10/02/24 Plan Of Treatment No Information Insurance Providers Payer Name Payer Address Payer Phone Subscriber Number Group Number Insured Name Patient Relationship to Insured Coverage Start Date Coverage End Date [facility] [address] [phone] [id number] Darnell Olea Self - patient is the insured 5 Medical (General) History Medical History History ICD Code Spinal stenosis herniated discs type 2 Diabetes hypertension Surgical History Surgery Date(Month/Year) Knee replacements both knees 2009 Hospitalization History Reason Date(Month/Year)
--- OUTSIDE RECORDS SUMMARY | 2024-11-15 01:21 | XMS_ITS | Clinical Summary ---
Author Organization [facility] Address [address] [place] [address] Care Team Providers Care Assembly Line Robot Operator Name Role Phone Rick Goldman MD Primary Care Provider [phone] Source Comments [facility],non-owned Affiliates and Associated Physician Practices is amultiple site organization consisting of ambulatory clinics and hospital sitesin [place], [place], [place] and [place]. This disclosure is being madepursuant to the Care Everywhere program and may not contain all information available regarding this patient. 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
--- OUTSIDE RECORDS SUMMARY | 2024-11-15 01:21 | XMS_ITS | Clinical Summary ---
Author Organization [facility] Address [facility] [place] [address] Care Team Providers Care Remelter Name Role Phone Unavailable Primary Care Provider Unavailabl e Allergies Active Allergy Reactions Criticality Noted Date Comments Duloxetine Hcl Other (see comment) 01/11/2021 Crosby like he was on speed Medications NARCAN [...] polyneuropathy, with long-term current use of insulin ([facility] HHS/HCC) 1 strip by Other route 4 (four) times daily. 400 strip 1 05/13/19 22 Active Lancets MiscIndications:Ty pe 2 diabetes mellitus with diabetic polyneuropathy, with long-term current use of insulin ([facility] HHS/HCC) Test 4 times daily 400 each 1 08/20/19 22 Active buPROPion XL (WELLBUTRIN XL) 150 MG 24 hr tabletIndications: Anxiety Take 3 tablets (450 mg total) by mouth daily. 90 tablet 2 10/30/19 22 Active Glucose Blood (CONTOUR TEST) test stripIndications:T ype 2 diabetes mellitus with diabetic polyneuropathy, with long-term current use of insulin ([facility]) 1 strip by Other route as needed. Test four times daily 400 strip 1 01/25/20 22 Active Blood Glucose Monitoring Suppl (CONTOUR NEXT MONITOR) w/Device KitIndications:Typ e 2 diabetes mellitus with diabetic polyneuropathy, with long-term current use of insulin ([facility]) Use daily as directed 1 kit 01/30/20 22 Active fluticasone-salmet selma (WIXELA INHUB) 500-50 MCG/ACT inhalerIndications :Pulmonary emphysema, unspecified emphysema type ([facility]) Inhale 1 puff into the lungs 2 [...] polyneuropathy, with long-term current use of insulin ([facility]) Inject 45 Units into the skin every morning AND 5 Units every evening. 9 pen 2 05/22/19 23 Active propranolol LA (INDERAL LA) 80 MG 24 hr capsuleIndications :Hypertension associated with type 2 diabetes mellitus ([facility]) Take 1 capsule by mouth once daily [...] polyneuropathy, with long-term current use of insulin ([facility]) USE 1 STRIP TO CHECK GLUCOSE 4 TIMES DAILY NEEDED 400 strip 08/15/19 23 Active BD PEN NEEDLE LAURA 2ND GEN 32G X 4 MM MiscIndications:Ty pe 2 diabetes mellitus with diabetic polyneuropathy, with long-term current use of insulin ([facility]) USE TO INJECT INSULIN ONCE DAILY 100 each 08/15/19 23 Active glipiZIDE (GLUCOTROL) 10 MG tabletIndications: Type 2 diabetes mellitus with diabetic polyneuropathy, with long-term current use of insulin ([facility]) Take 1 tablet by mouth twice daily 180 tablet 09/30/19 23 Active losartan (COZAAR) 100 MG tabletIndications: Type 2 diabetes mellitus with diabetic polyneuropathy, with long-term current use of insulin ([facility] HHS/[facility]) Take 1 tablet by mouth once daily 90 tablet 1 09/30/19 23 Active pravastatin (PRAVACHOL) 40 MG tabletIndications: Hyperlipidemia, unspecified hyperlipidemia type Take 1 tablet by mouth once daily 90 tablet 1 09/30/19 23 Active metFORMIN ER (GLUCOPHAGE-XR) 500 MG 24 hr tabletIndications: Type 2 diabetes mellitus with diabetic polyneuropathy, with long-term current use of insulin ([facility]) Take 2 tablets by mouth twice daily [...] associated wi th type 2 diabetes mellitus ([facility]) 09/25/2021 Long-term insulin use ([facility]) 09/26/19 22 Pulmonary emphysema, unspeci fied emphysema type ([facility]) 09/25/2021 Hypertension associated with type 2 diabetes mellitus ([facility]) 08/08/2021 Type 2 diabetes mellitus wit h diabetic polyneuropathy, with long-term current use of insulin ([facility]) 06/27/2021 Degeneration of lumbar or lumbosacral interverte bral disc 06/30/2011 Immunizations Immunization Administration Dates Next Due Flulaval Quad (Multi-Dose Vial) 12/18/2017 Fluzone High Dose - >Age 65 (Prefilled Syringe) 12/16/2021 Influenza (Generic) 11/16/2020, 0,12/14/2018,2017,12/28/2016,11/30/2015,11/30/2013,0 11/29/2012 Influenza Adult (Generic) 12/02/2019,,12/18/2017,2016 Pneumococcal (Pneumovax 23) 12/14/2018, 6 Pneumococcal (Prevnar 13) 12/06/2014 Pneumovax 23 25 Mcg/0.5Ml Ij Inj 12/14/2018,11/28 Shingrix 01/31/2020,12/02/2019 Tdap (Generic) 12/14/2018 Zoster (Zostavax) [address]268 Unt/0.65Ml 01/30,12/02/2019,12/07/2014,2014 Family History Medical History Relation [...] uit: Yes; Counseling Given: Yes Comments:[provider to anger control counselor Alcohol Use Standard Drinks/Week Comments Not [...] Comments Blood Pressure 124/78 04/22/2022 7:34 AM ACCOUNTING MACHINE OPERATOR Pulse 102 04/22/2022 7:34 AM ACCOUNTING MACHINE OPERATOR Temperature 36.7 C (98.1 F) 04/22/2022 7:34 AM ACCOUNTING MACHINE OPERATOR Respiratory Rate 16 04/22/2022 7:34 AM ACCOUNTING MACHINE OPERATOR Oxygen Saturation 92% 04/22/2022 7:34 AM ACCOUNTING MACHINE OPERATOR Inhaled Oxygen Concentration - - Weight 122.8 kg (270 lb 12.8 oz) 04/22/2022 7:34 AM ACCOUNTING MACHINE OPERATOR Height 177.8 cm (5' 10) 04/22/2022 7:34 AM ACCOUNTING MACHINE OPERATOR Body Mass Index 38.86 04/22/2022 7:34 AM ACCOUNTING MACHINE OPERATOR Plan of Treatment Health Maintenance Due Date [...] Eye Exam 01/04/2024 01/03/2022, 01/01/2021 PHQ-2 (Physician [place]) 03/30/2024 DTaP, Tdap and Td Vaccines (2 [...] (BACK OFFICE) (04/22/2022) HGB A1C 8.5 % [facility] 04/22/2022 us Kane Treviño DO LABORATORY Final Re sult [facility] [address] [place] [address], [place] * DIABETIC RETINOPATHY EXAM (NEGATIVE)(SCAN) (01/03/2022) [facility] Scanned SCANNING Final Resu lt [facility] ON[facility] * LIPID PANEL (12/18/2021 7:57 AM CDT) CHOLESTEROL 146 MG/DL 12/18/2021 3:23 PM CDT [facility] TRIGLYCERIDES 143 <150 MG/DL 12/18/2021 3:23 PM CDT [facility] HDL 44 >40 MG/DL 12/18/2021 3:23 PM CDT [facility] LDL-C 73 MG/DL 12/18/2021 3:23 PM CDT [facility] VLDL CALCULATION 29 MG/DL 12/19/19 3:23 PM CDT [facility] CHOL/HDL RATIO 3.3 12/18/2021 3:23 PM CDT [facility] LDL/HDL 1.7 12/18/2021 3:23 PM CDT [facility] NON HDL CHOLESTEROL 102 MG/DL 12/18/2021 3:23 PM CDT [facility] 12/18/2021 7:57 AM CDT Kane Treviño DO LABORATORY Final Re sult Performing Organization Address City/[facility]/ZIP Co de Phone Number -[facility] [address] [place] [address], * HEPATITIS C ANTIBODY (12/18/2021 7:57 AM CDT) HEPATITIS C AB NON-REACTI VE NON-REACT KEISHA 12/18/2021 6:40 PM CDT [facility] Comment: ANTIBODIES TO HCV NOT DETECTED. DOES NOT EXCLUDE THE POSSIBILITY OF EXPOSURE TO HCV. 12/18/2021 7:57 AM CDT Kane Treviño DO LABORATORY Final Re sult [facility] [address] [place] [address], [id number] from Last 3 Months or Most Recently Relevant to Health Maintenance Insurance [facility]
[2024-11-15] MEDS: LACTATED RINGERS 1,000 ML 30 ML IV CONT ×2 (10:45→17:07)
--- NOTE | 2024-11-15 13:16 | WPDANESEPPF ---
Anes - Initial Pre Proc Eval Procedure: Operation Date: 11/15/24 12:30 Proposed Procedures p L4-5 Posterior Lumbar Interbody Fusion, L2-4 Laminectomy - Rigo Cary MD Date/Time: 11/15/24 13:16 Surgeon: Rigo Cary MD Pre Op Diagnosis: L4-5 spondylolisthesis Patient Data Age: 68 Gender: M Height: 1.78 m Weight: 108.3 kg Last Vital Signs Temp 36.1 C L 11/15/24 10:55 Pulse 89 11/15/24 10:55 Resp 20 11/15/24 10:55 BP 120/55 L 11/15/24 10:55 Pulse Ox 94 11/15/24 10:55 O2 Del Method Room Air 11/15/24 10:55 Allergies Allergy/AdvReac Type Severity Reaction Status Date / Time No Known Allergies Allergy Verified 11/15/24 10:52 Home Medications ?Medication ?Instructions ?Recorded ?Confirmed ?Type multivitamin 1 tablet PO DAILY 07/27/20 11/15/24 History naloxone 4 mg/actuation nasal 1 spray intranasal Q2-3M PRN 01/21/23 10/31/24 Rx spray (Narcan) opioid overdose #2 ea blood sugar diagnostic (Contour See Rx Instructions .Route 04/15/23 10/31/24 Rx Next Test Strips) .COMPLEX #100 strips duloxetine 60 mg capsule,delayed 60 mg PO DAILY #90 ea 02/08/24 11/15/24 Rx release losartan 100 mg tablet 100 mg PO DAILY #90 tabs 03/16/24 11/15/24 Rx pravastatin 40 mg tablet 40 mg PO DAILY #90 tabs 05/13/24 11/15/24 Rx glipizide 5 mg tablet See Rx Instructions .Route 06/13/24 11/15/24 Rx .COMPLEX #90 tabs pioglitazone 45 mg tablet See Rx Instructions .Route 06/13/24 11/15/24 Rx .COMPLEX #90 tabs semaglutide 14 mg tablet (Rybelsus) 14 mg PO DAILY #90 tabs 07/14/24 11/15/24 Rx diazepam 10 mg tablet 10 mg PO TID PRN anxiety #90 tabs 09/01/24 11/15/24 Rx albuterol sulfate 90 mcg/actuation 2 puff inhalation Q4-6H PRN 09/14/24 10/31/24 Rx aerosol inhaler shortness of breath #8.5 grams oxycodone 10 mg tablet 10 mg PO QID PRN pain #120 tabs 09/29/24 11/15/24 Rx aspirin 81 mg tablet,delayed 81 mg PO DAILY 10/31/24 10/31/24 History release (Adult Low Dose Aspirin) diclofenac sodium 75 mg 75 mg PO BID PRN pain 10/31/24 11/15/24 History tablet,delayed release ketoconazole 2 % topical cream 1 applic topical DAILY PRN skin 10/31/24 10/31/24 History irritation metformin 500 mg tablet,extended 1,000 mg PO BID 10/31/24 11/15/24 History release 24 hr ropinirole 0.5 mg tablet 0.5 mg PO QHS #30 tabs 11/08/24 Rx Laboratory Tests 11/15/24 11/15/24 11/15/24 10:45 10:50 12:09 POC Capillary Glucose 204 H mg/dl 165 H mg/dl (65-105) (65-105) Blood Type O Positive Antibody Screen Negative Patient hx anesthesia problems: none Family hx anesthesia problems: none Results Review: All pre-operative results and documents have been reviewed as part of the pre-operative evaluation. [facility] Past Medical History Medical History Arthritis Asthma Allergies Left hip pain Abnormal TSH Trochanteric bursitis, left hip Bone spur Surgical History Surgical History Hx of umbilical hernia repair History of right knee joint replacement Status post left knee replacement S/P rotator cuff repair Family History Family History Mother Patient's mother is in good health Father Patient's father is in good health Asthma Diabetes mellitus Hypertension Depression Grandparent Diabetes mellitus Other Family history of arthritis Social History Social History Smoking packs per day: 0.5 Smoking cigarettes per day: 10.0 Years smoked: 40 Smoking pack-years: 20.00 Smoking status: Current every day smoker Tobacco type: cigarettes Second hand tobacco smoke exposure: No Smoking end date: 09/11/24 Alcohol intake: former Alcohol use details: Has not consumed alcohol for 20+ years Substance use: never Substance use type: does not use Lack of Transportation: No Lack of Food: Sometimes True Current Housing: I Have Housing Concerned About Future Housing: No Difficulty Paying Gas/Electric Bills: No Difficulty Paying for Meds: No Currently Unemployed: No Education: High School Diploma/GED Difficulty w/ Childcare or Family Care: No Living arrangements: with family Additional living arrangements comments: Gender identity (if verbalized by the patient): Male Spiritual care concerns: No Anes - Eval Final PreProcedure Day of Procedure 11/15/24 13:16 Patient weight: obese Heart: regular rate and rhythm Lungs: clear to auscultation Airway: Mallampati scale class II Neurological: alert and oriented Last oral intake: >/= 8 hours ASA classification: III Emergent: no Anesthetic plan: proceed Anesthesia type and monitoring: general ETT and standard monitoring Results Review: All pre-operative results and documents have been reviewed as part of the pre-operative evaluation. Informed Consent: The patient's anesthetic plan and its attendant risks and benefits were discussed with the patient/family/POA. Questions were solicited and answers provided to the satisfaction of the patient/family/POA.
--- NOTE | 2024-11-15 13:34 | PM.IMHP ---
H&P: HPI History of Present Illness Date/Time: 11/15/24 13:34 Chief Complaint: Back and leg pain Narrative: Shannon is a 60-year-old gentleman with long-time history of pain in his back radiating in his lower extremities. This discomfort is with him at all times. Has been going on for least 5 years progressively. When he stands and walks he has pain in his back radiating into his lower extremities and claudicatory fashion the root requires that he sit. He can only walk short distances, such as from the parking lot to the examination room. He likes to lean over as he walks. However, if he sits down the discomfort continues. He notices also claudicatory weakness but not baseline weakness. This is generalized and not specific to a muscle group. He does not have dermatomal numbness. He does not have new bowel or bladder difficulty but complained that a bladder pill that he was given by his doctor caused him to urinate more frequently and with less control so he stopped taking it. He has undergone MRI evaluation of his lumbar spine. He has participated in physical therapy. He has seen a painter and decorator and undergone injections in the lumbar spine without permanent benefit. He has limited distracted by severe pain on a daily basis and is clearly uncomfortable in the office sitting in the examination room today. He uses a cane so that he can lean forward slightly. Review of Systems Review of Systems: All systems reviewed & are unremarkable except as noted in HPI and below Denies chills, Denies fever, Denies weight gain and Denies weight loss Eyes Denies change in vision and Denies diplopia ENT Denies disequilibrium Card Denies chest pain and Denies dyspnea Resp Denies cough and Denies dyspnea GI Denies abdominal pain, Denies change in bowel habits, Denies fecal incontinence and Denies vomiting Denies hematuria, Denies oliguria, Denies difficulty urinating, Denies dysuria, Denies urinary frequency, Denies urinary hesitancy, Denies urinary incontinence and Denies urinary urgency Musc Reports as per HPI Skin/ Breast Reports system reviewed and no additional complaints, except as documented Neuro Reports as per HPI Psych Reports no additional complaints, Denies depression and Denies hopelessness Endo Reports no additional complaints and Denies polyuria Migue/ Lymph Reports no additional complaints Aller/ Immun Reports no additional complaints PMFSH Past Medical History Medical History Arthritis Asthma Allergies Left hip pain Abnormal TSH Trochanteric bursitis, left hip Bone spur Surgical History Surgical History Hx of umbilical hernia repair History of right knee joint replacement Status post left knee replacement S/P rotator cuff repair Family History Family History Mother Patient's mother is in good health Father Patient's father is in good health Asthma Diabetes mellitus Hypertension Depression Grandparent Diabetes mellitus Other Family history of arthritis Social History Social History Smoking packs per day: 0.5 Smoking cigarettes per day: 10.0 Years smoked: 40 Smoking pack-years: 20.00 Smoking status: Current every day smoker Tobacco type: cigarettes Second hand tobacco smoke exposure: No Smoking end date: 09/11/24 Alcohol intake: former Alcohol use details: Has not consumed alcohol for 20+ years Substance use: never Substance use type: does not use Lack of Transportation: No Lack of Food: Sometimes True Current Housing: I Have Housing Concerned About Future Housing: No Difficulty Paying Gas/Electric Bills: No Difficulty Paying for Meds: No Currently Unemployed: No Education: High School Diploma/GED Difficulty w/ Childcare or Family Care: No Living arrangements: with family Additional living arrangements comments: Gender identity (if verbalized by the patient): Male Spiritual care concerns: No Meds Home Medications and Allergies Home Medications ?Medication ?Instructions ?Recorded ?Confirmed ?Type multivitamin 1 tablet PO DAILY 07/27/20 11/15/24 History naloxone 4 mg/actuation nasal 1 spray intranasal Q2-3M PRN 01/21/23 10/31/24 Rx spray (Narcan) opioid overdose #2 ea blood sugar diagnostic (Contour See Rx Instructions .Route 04/15/23 10/31/24 Rx Next Test Strips) .COMPLEX #100 strips duloxetine 60 mg capsule,delayed 60 mg PO DAILY #90 ea 02/08/24 11/15/24 Rx release losartan 100 mg tablet 100 mg PO DAILY #90 tabs 03/16/24 11/15/24 Rx pravastatin 40 mg tablet 40 mg PO DAILY #90 tabs 05/13/24 11/15/24 Rx glipizide 5 mg tablet See Rx Instructions .Route 06/13/24 11/15/24 Rx .COMPLEX #90 tabs pioglitazone 45 mg tablet See Rx Instructions .Route 06/13/24 11/15/24 Rx .COMPLEX #90 tabs semaglutide 14 mg tablet (Rybelsus) 14 mg PO DAILY #90 tabs 07/14/24 11/15/24 Rx diazepam 10 mg tablet 10 mg PO TID PRN anxiety #90 tabs 09/01/24 11/15/24 Rx albuterol sulfate 90 mcg/actuation 2 puff inhalation Q4-6H PRN 09/14/24 10/31/24 Rx aerosol inhaler shortness of breath #8.5 grams oxycodone 10 mg tablet 10 mg PO QID PRN pain #120 tabs 09/29/24 11/15/24 Rx aspirin 81 mg tablet,delayed 81 mg PO DAILY 10/31/24 10/31/24 History release (Adult Low Dose Aspirin) diclofenac sodium 75 mg 75 mg PO BID PRN pain 10/31/24 11/15/24 History tablet,delayed release ketoconazole 2 % topical cream 1 applic topical DAILY PRN skin 10/31/24 10/31/24 History irritation metformin 500 mg tablet,extended 1,000 mg PO BID 10/31/24 11/15/24 History release 24 hr ropinirole 0.5 mg tablet 0.5 mg PO QHS #30 tabs 11/08/24 Rx Allergies Allergy/AdvReac Type Severity Reaction Status Date / Time No Known Allergies Allergy Verified 11/15/24 10:52 Vital Signs Vital Signs - 24 hr 11/15/24 10:55 Temperature 97 F L Pulse Rate 89 Respiratory Rate 20 Blood Pressure 120/55 L Pulse Oximetry 94 Oxygen Delivery Room Air Exam Narrative: General: cooperative, no acute distress, well developed, alert and awake Orientation/Consciousness: oriented to person, oriented to place and oriented to time Constitutional Limitations: no limitations Other: The patient is a normally developed, normal appearing male sitting on the examination table in no acute distress. He is awake, alert, and oriented x3 with good fund of knowledge, recall of events, and fluent speech. HENDE Head: normocephalic and atraumatic Ears: external ears normal Face/Nose/Sinus: Normal external nose present Eyes Eyelids: eyelids normal Pupils: Yes Pupils normal by confrontation EOM: EOMs intact bilaterally Neck General: Yes no meningeal signs, Yes supple and Yes no JVD Resp Effort/Inspection: normal respiratory effort and able to speak in complete sentences Cardio Rate: Yes regular rate GI Inspection: No abdominal distension Musc Other: Examination of the back reveals no tenderness. Range of motion of the back is full without pain in forward flexion, extension, and lateral rotation to both sides. Straight leg raise is negative bilaterally. Sincere?s test is negative bilaterally. Skin General: normal color Neuro General: Yes oriented to person, Yes oriented to place, Yes oriented to time, Yes normal cognition and Yes no meningeal signs Cranial Nerves: Yes CN's II-XII intact bilaterally Other: Motor: Strength is normal, 5/5, throughout all muscle groups of the bilateral upper and lower extremities to direct confrontation. Sensory: Sensation is intact to light touch throughout the upper and lower extremities bilaterally. Reflexes: Deep tendon reflexes are normal and symmetric at the knee is bilaterally difficult to elicit the ankles bilaterally. There is no clonus. Gait: Gait, station, and transfers are independent and steady for short periods of time and over short distances With the use of a cane. He leans forward. Transfers and even sitting are antalgic. Psych Appearance: grossly normal Mental status: Yes mental status grossly normal Mood: congruent mood Affect: Yes normal affect Speech/Movement: Normal speech and movement present Attitude: Yes cooperative Thought Content: Normal thought content present Review of studies: MRI of the lumbar spine was personally reviewed by me. This demonstrates central canal stenosis at L2-3, L3-4 and most severe at L4-5 where there is a grade 1 anterolisthesis and severe spondylosis bilaterally. The spondylosis elsewhere is more moderate. There is a slight retrolisthesis of L2 on L3. Assessment and Plan Assessment and plan (1) Spinal stenosis of lumbar region: Code(s): M48.061 - Spinal stenosis, lumbar region without neurogenic claudication Status: Acute (2) Spondylolisthesis at L4-L5 level: Code(s): M43.16 - Spondylolisthesis, lumbar region Status: Acute Plan Shannon is a 60-year-old gentleman with back and leg pain related to the severe stenosis at L2-3, L3-4 L4-5 and listhesis at L4-5 which also is responsible for back pain. The severe spondylosis contributes. I recommended him fusion at L4-[address] of laminectomy at L2-3 and L3-4 and described to him that operation, its risks, potential benefits, the operative and postoperative course in detail and answered all her questions personally. We discussed risks including but not limited to permanent neurologic deficit secondary to nerve root injury, need for reoperation secondary to infection, bleeding, CSF leak, adjacent level disease, recurrent residual pathology or instability, malposition migration of the hardware or nonunion, failure of the procedure to relieve his pain or symptoms, persistent pain, medical complications related anesthesia or surgery, etc.. Indicates understanding and elects to proceed with that operation.
--- NOTE | 2024-11-15 13:37 | WPDHPUPDATE1 ---
History and Physical Update Update Date/Time: 11/15/24 13:37 History and Physical has been reviewed, including an updated exam of the patient. There are NO changes in the patient's condition. Risks, benefits, and alternatives have been discussed and questions answered. Patient agrees to proceed with procedure.
[2024-11-15] MEDS: ceFAZolin 2 GM in SODIUM CHLORIDE 0.9% IV 50 ML 100 ML IVPB ×2 (13:46→21:01)
[2024-11-15] MEDS: LIDO 1%/EPINEPHRINE 1:100,000 20 ML VIAL 15 ML INFILTRATE (14:49)
[2024-11-15] MEDS: fentaNYL CITRATE INJ (*CRX) 100 MCG/2 ML VIAL 25 MCG IV PUSH ×8 (17:18→18:10)
--- NOTE | 2024-11-15 18:43 | ADMGEN ---
This patient, Darnell Olea, was admitted to 2 Medical Room 259-. Patient/family oriented to hospital policies and general routines including ID bracelet, bed and alarms, visiting hours, pain management, procedures, bathroom and other care routines, personal items, smoking policy, room service/diet, and visiting hours. Information on how to activate the Rapid Response Team has been discussed. Patient/Family are encouraged to report perceived risks to care and to ask questions if they do not understand what they are told or what they should do.
[2024-11-15] MEDS: HYDROmorphone HCL INJ (*CRX) 1 MG/ML SYR 0.5 MG IV PUSH (19:25)
[2024-11-15] MEDS: oxyCODONE/ACETAMINOPHEN (*CRX) 10-325 MG TABLET 1 TAB PO (20:20)
[2024-11-15] MEDS: DOCUSATE SODIUM 100 MG CAPSULE PO (20:20)
[2024-11-16] MEDS: oxyCODONE/ACETAMINOPHEN (*CRX) 10-325 MG TABLET 1 TAB PO ×4 (00:09→16:48)
[2024-11-16 01:31] VITALS: BP 121/60; PULSE 78; RESP 20; TEMP 36.6; O2SAT 100
[2024-11-16] MEDS: HYDROmorphone HCL INJ (*CRX) 1 MG/ML SYR 0.5 MG IV PUSH ×3 (01:41→12:20)
[2024-11-16 05:02] VITALS: BP 121/62; PULSE 78; RESP 20; TEMP 36.6; O2SAT 100
[2024-11-16] MEDS: LOSARTAN POTASSIUM 100 MG TABLET PO (08:59)
[2024-11-16] MEDS: PIOGLITAZONE HCL 45 MG TABLET BY MOUTH (08:59)
[2024-11-16] MEDS: MULTIVITAMINS THERAPEUTIC TAB (*BKC) 1 TABLET PO (09:00)
[2024-11-16] MEDS: DOCUSATE SODIUM 100 MG CAPSULE PO (09:00)
[2024-11-16] MEDS: DULoxetine HCL 60 MG CAPSULE.DR PO (09:00)
[2024-11-16] MEDS: PRAVASTATIN SODIUM 20 MG TABLET 40 MG PO (09:00)
[2024-11-16] MEDS: metFORMIN HCL XR 500 MG TAB.SR.24H 1000 MG PO (09:00)
[2024-11-16 09:31] VITALS: BP 124/47; PULSE 90; RESP 20; TEMP 36.4; O2SAT 100
[2024-11-16] MEDS: ceFAZolin 2 GM in SODIUM CHLORIDE 0.9% IV 50 ML 100 ML IVPB (10:52)
[2024-11-16 13:31] VITALS: BP 109/62; PULSE 87; RESP 18; TEMP 37; O2SAT 97
--- NOTE | 2024-11-16 16:49 | WPDNEUROSGPN ---
Progress Note: A&P Assessment and Plan (1) Status post lumbar spinal fusion: Code(s): Z98.1 - Arthrodesis status Status: Acute Plan -Patient is adamant about going home tonight. I discussed my concern about discharging too soon given his level of pain. He is comfortable going home tonight -Discussed bathing and activity restrictions -Remove hemovac -Follow up with Dr. Cary as scheduled Subjective Date/time seen: 11/16/24 16:49 Interval history: Having quite a bit of back pain. Oxycodone is somewhat helpful. Has not received IV pain medication this afternoon. Waiting to void. Worked with therapy today. He is adamant about going home tonight Review of Systems Review of Systems: All systems reviewed & are unremarkable except as noted in HPI and below Exam Narrative: Incision c/d/i Full strength in legs Sensation intact to light touch Objective Data Vital Signs Vital Signs: Vital Signs - 24 hr 11/15/24 17:07 11/15/24 17:20 11/15/24 17:35 Temperature 97.9 F Pulse Rate 89 89 84 Respiratory Rate 22 H 17 17 Blood Pressure 110/55 L 129/75 121/60 Pulse Oximetry 100 100 100 Oxygen Delivery Simple Face Mask Simple Face Mask Nasal Cannula Oxygen Flow Rate 10 10 2 11/15/24 17:50 11/15/24 18:05 11/15/24 18:20 Temperature Pulse Rate 86 84 81 Respiratory Rate 14 11 L 12 Blood Pressure 110/73 120/61 107/63 Pulse Oximetry 100 98 97 Oxygen Delivery Nasal Cannula Nasal Cannula Nasal Cannula Oxygen Flow Rate 2 2 2 11/15/24 18:50 11/15/24 19:01 11/15/24 19:16 Temperature 97.9 F 97.8 F 97.8 F Pulse Rate 87 84 84 Respiratory Rate 16 20 20 Blood Pressure 145/101 H 135/67 135/69 Pulse Oximetry 98 96 96 Oxygen Delivery Oxygen Flow Rate 11/15/24 19:31 11/15/24 20:01 11/15/24 20:20 Temperature 97.8 F 97.8 F Pulse Rate 84 84 84 Respiratory Rate 20 20 20 Blood Pressure 135/67 135/97 H Pulse Oximetry 96 96 96 Oxygen Delivery Nasal Cannula Oxygen Flow Rate 2 11/15/24 20:25 11/15/24 21:31 11/16/24 01:31 Temperature 97.8 F 97.6 F 97.8 F Pulse Rate 84 94 78 Respiratory Rate 20 20 20 Blood Pressure 135/67 108/54 L 121/60 Pulse Oximetry 96 99 100 Oxygen Delivery Oxygen Flow Rate 11/16/24 05:02 11/16/24 08:50 11/16/24 09:15 Temperature 97.8 F Pulse Rate 78 Respiratory Rate 20 Blood Pressure 121/62 Pulse Oximetry 100 Oxygen Delivery Room Air Room Air Oxygen Flow Rate 11/16/24 09:31 11/16/24 13:31 Temperature 97.6 F 98.6 F Pulse Rate 90 87 Respiratory Rate 20 18 Blood Pressure 124/47 L 109/62 Pulse Oximetry 100 97 Oxygen Delivery Oxygen Flow Rate Intake/Output Intake/Output: Intake & Output 11/13/24 11/14/24 11/15/24 11/16/24 23:59 23:59 23:59 23:59 Intake Total 600 940 Output Total 160 1040 Balance 440 -100 Meds/Results Medications: Active Medications Generic Name Dose Route Start Last Admin Trade Name Freq PRN Reason Stop Dose Admin Al Hydrox/Mg Hydrox/Simethicone 20 ml 11/15/24 18:31 Mag Hydrox/Al Hydrox/Simeth 30 Ml Udc PO Q4H PRN Indigestion/Heartburn Albuterol 2 puff 11/15/24 18:31 Albuterol Sulfate (*Sp) Aerosol 1 Puff INHALATION Q4-6H PRN Shortness Of Breath Bisacodyl 10 mg 11/15/24 18:31 Bisacodyl 10 Mg Suppository RECTAL DAILY PRN Constipation Diazepam 10 mg 11/15/24 18:31 Diazepam (*Crx) 10 Mg Tablet PO TID PRN Anxiety Docusate Sodium 100 mg 11/15/24 21:00 11/16/24 09:00 Docusate Sodium 100 Mg Capsule PO 100 mg Q12HR JOSE Administration Duloxetine HCl 60 mg 11/16/24 09:00 11/16/24 09:00 Duloxetine Hcl 60 Mg Capsule.Dr PO 60 mg DAILY JOSE Administration Glipizide 5 mg 11/16/24 09:00 11/16/24 08:59 Glipizide 5 Mg Tablet BY MOUTH 5 mg DAILY JOSE Administration Hydromorphone HCl 0.5 mg 11/15/24 18:31 11/16/24 12:20 Hydromorphone Hcl Inj (*Crx) 1 Mg/Ml Syr IV PUSH 0.5 mg Q2H PRN Administration Pain Rated 7-10 Potassium Chloride/Dextrose/Sod Cl 1,000 mls @ 100 mls/hr 11/15/24 18:31 11/16/24 06:56 Kcl 20 Meq/D5/0.45% Sod Chl IV CONT Not Given .Q10H JOSE Cefazolin Sodium 2 gm/ Sodium 50 mls @ 100 mls/hr 11/15/24 22:00 11/16/24 11:22 Chloride IVPB Infused Q12H JOSE Infusion Losartan Potassium 100 mg 11/16/24 09:00 11/16/24 08:59 Losartan Potassium 100 Mg Tablet PO 100 mg DAILY JOSE Administration Metformin HCl 1,000 mg 11/16/24 09:00 11/16/24 09:00 Metformin Hcl Xr 500 Mg Tab.Sr.24h PO 1,000 mg BID JOSE Administration Miconazole Nitrate 1 applic 11/15/24 18:38 Miconazole Nitrate 2% Cream 30 Gm Tube TOPICAL DAILY PRN skin irritation Miscellaneous Information 1 each 11/16/24 00:01 Contour Test Strips Nonform; Use Adult Insulin Order Set To Order Accu-Cheks/Sliding Scale XX 12/16/24 00:00 CL[facility]IFY [facility] Miscellaneous Information 1 each 11/16/24 00:01 Naloxone Nasal [place] Is Nonform; Can This Be Held Until Discharge? XX 12/16/24 00:00 [facility] Miscellaneous Information 1 each 11/16/24 00:01 Rybelsus Is Nonform; Can Pt Use From Home? XX 12/16/24 00:00 [facility] Multivitamins Therapeutic 1 tablet 11/16/24 09:00 11/16/24 09:00 Multivitamins Therapeutic Tab (*Bkc) PO 1 tablet DAILY JOSE Administration Non-Formulary Medication 0 strip 11/15/24 18:31 Blood Sugar Diagnostic [Contour Next Test Strips] .ROUTE 12/15/24 18:30 .COMPLEX JOSE Non-Formulary Medication 1 spray 11/15/24 18:31 Naloxone [Narcan] NASAL Q2-3M PRN opioid overdose Non-Formulary Medication 14 mg 11/16/24 09:00 Semaglutide [Rybelsus] PO 12/16/24 08:59 DAILY [facility] Ondansetron HCl 4 mg 11/15/24 18:31 Ondansetron Inj 4 Mg/2 Ml Vial IV PUSH Q8H PRN Nausea And Vomiting Oxycodone/Acetaminophen 1 tablet 11/15/24 18:31 Oxycodone/Acetaminophen (*Crx) 5-325 Mg Tablet PO Q4H PRN Mild Pain (1-3) Oxycodone/Acetaminophen 1 tab 11/15/24 18:31 11/16/24 08:59 Oxycodone/Acetaminophen (*Crx) 10-325 Mg Tablet PO 1 tab Q4H PRN Administration Moderate Pain (4-6) Pioglitazone HCl 45 mg 11/16/24 09:00 11/16/24 08:59 Pioglitazone Hcl 45 Mg Tablet BY MOUTH 45 mg DAILY JOSE Administration Pravastatin Sodium 40 mg 11/16/24 09:00 11/16/24 09:00 Pravastatin Sodium 20 Mg Tablet PO 40 mg DAILY JOSE Administration Senna/Docusate Sodium 1 tab 11/15/24 18:31 Senna/Docusate Sodium Tablet PO HS PRN Constipation Radiology Results: ITS Impressions Fluoroscopy 11/15/24 18:09 IMPRESSION: Fluoroscopy used during L4-5 posterior lumbar interbody fusion. Labs Labs: Laboratory Results - last 24 hr 11/15/24 11/16/24 11/16/24 17:21 07:50 09:49 POC Capillary Glucose 187 H 175 H 258 H 11/16/24 11:29 POC Capillary Glucose 236 H
--- NOTE | 2024-11-23 15:53 | P.OP_ITS ---
Procedure Note - Detailed Date of Procedure 11/23/24 Pre-op Diagnosis L4-5 spondylolisthesis, L2-4 stenosis Post-op Diagnosis Same Procedure Performed L2-4 laminectomy, L4-5 complete laminectomy bilateral facetectomy, L4-5 complete diskectomy and interbody arthrodesis utilizing titanium interbody devices and local autograft, L4-5 pedicle screw instrumentation Surgeon Rigo Cary MD Anesthesia General Description of Procedure Patient was brought to the operating room in the supine position, was sedated, intubated placed under general anesthesia in routine fashion. Was then turned into the prone position on Krishna frame. There operation on his back was examined, marked for incision, prepped and draped in routine sterile fashion. Incision was marked over the L2-3 5 spinous processes in the midline. This area was injected with 0.5% lidocaine with [id number] epinephrine. Intravenous antibiotics given prior to incision. Incision was made with a 10 blade scalpel down to the lumbodorsal fascia. A subperiosteal dissection of the muscle soft tissue away from spinous process lamina of L2-5 was performed with a subperiosteal elevator and Bovie cautery. A verifying x-rays obtained to verify the level of operation. A Lori rongeur was used to remove the L2 through 4 spinous processes. K errison punches and curved curettes were used to define a plane with the dura and removed bone and ligament in the midline at L4. At L2-L3 Midas-Yeison drill with the acorn bit was used to thin the lamina until the soft contents of the canal were encountered. Curved curette was used to define a plane with the dura Kerrison punches were used to remove overgrown bone ligament in the midline in the lateral recess. Done until a dental instrument could be placed in the lateral recess from L2-4 confirm lack of compression. The Midas-Yeison drill was used to resect the pars bilaterally at L4. The inferior articular process and facet of L4 could then be removed bilaterally. These places spinous processes were stripped free of soft tissue and morselized for later use as interbody allograft. Kerrison punches and curved curettes were used to define a plane with the dura and removed bone and ligament flush the pedicle and through the foramina at L4-5 widely decompressing the exiting nerve roots. With the thecal sac retracted and protected the disc spaces entered bilaterally using 11 blade scalpel. Scrapers fair sizes, curettes of various configurations, pituitary rongeur and a rasp were used to remove as much cartilaginous endplate and disc material as possible down to the bleeding cortical flat surfaces on the opposing bones. The disc space was incised appropriately sized titanium interbody devices were chosen filled with local autograft bone. The disc space was likewise filled with local autograft bone medially and anteriorly. The interbody devices were then placed to a 2-3 mm countersink within the disc space bilaterally. Pedicle screw instrumentation was then performed by observing the palpating the pedicle a hole was made superior to the process of of the pedicle using a Midas Yeison drill. The pedicle was then cannulated with a pedicle probe, check for continuity with ball probe, tapped with 5.5 mm tap and a 6.5 x 50 mm screw was placed into each pedicle on each side. Rods were placed in the screw heads on either side and secured in position using the caps that purpose. These are definitively tightened with torque and anti torque device. A verifying x-rays o btained to verify good position of the instrumentation which was confirmed. The wound was then copiously irrigated with bacitracin irrigation all bleeding stopped bipolar and Bovie cautery and Gelfoam thrombin powder. A medium Hemovac drain was left in the subfascial position buried out to the inferior right of the incision. The wound was then closed in layered fashion with 2-0 Vicryl interrupted sutures in the lumbodorsal fascia and Nelson's layer. 3-0 Vicryl buried interrupted sutures were placed in the dermis and skin was closed with a running 4-0 Monocryl subcuticular stitch and dressed with Dermabond. Patient was allowed to wake up in the operating room and was taken to the recovery room in stable condition. There were no immediate complications of this operation. All counts reported correct in the case. Blood loss was 300 cc. The patient was neurologically at his baseline postoperatively. CPT codes: 79427, 95275, 43234, 50158, 09070, 06022, 35647 Estimated Blood Loss 300 Drains Yes Complications None Condition Stable Disposition PACU [facility] Billing Surgery - Charge Forward: Surgery Billing
== END 2024-11-16 17:10 | disposition home or self-care (01) ==
LOC: ANHSURGERY 10:07 → ANH2MED 18:32
PROVIDERS: PCP Internal Medicine; Visit Provider Neurological Surgery
PROC: (CPT 22612; principal; 2024-11-15 12:30)
DX: M48.061 Spinal stenosis, lumbar region without neurogenic claudication (principal); M43.16 Spondylolisthesis, lumbar region; M19.90 Unspecified osteoarthritis, unspecified site; J45.909 Unspecified asthma, uncomplicated; F17.210 Nicotine dependence, cigarettes, uncomplicated; E66.9 Obesity, unspecified; Z68.34 Body mass index [BMI] 34.0-34.9, adult; Z79.84 Long term (current) use of oral hypoglycemic drugs; Z79.51 Long term (current) use of inhaled steroids; Z79.891 Long term (current) use of opiate analgesic; Z79.82 Long term (current) use of aspirin; Z98.890 Other specified postprocedural states
CPT/HCPCS: 22840; 22630; 22853; 63047; 20936; 36415; 82948; 86850; 86900; 86901; 97161; 97165; 97535; 99199; J0690; A9270; C1713; J1100; J1171; J2003; J2004; J2250; J2371; J2405; J2704; J3010; J7120

== ENCOUNTER 2025-01-10 06:33 | Outpatient (CLI) | payer MEDICARE, SELFPAY ==
--- NOTE | ~2025-01-10 | XR_ITS ---
XR lumbar spine 2-3V Indication: Z98.1 - Arthrodesis status Comparison: None Findings: Posterior fixation L4 on L5 with disc prosthesis, the hardware is intact, no acute fracture. Moderate loss of the remaining disc heights. Soft tissues unremarkable Impression: No acute abnormality. Reviewed, dictated and finalized at location P. Impression: No acute abnormality.
--- OUTSIDE RECORDS SUMMARY | 2025-01-10 06:35 | XMS_ITS | Patient Health Record ---
Author Organization [facility] Address [address] [place] [address] Care Team Providers Care Associate Genetics Professor Name Role Phone Rick Goldman Primary Care Provider [phone] Allergies No Known Allergies Results Component [...] Duration) Notes Start Date End Date Status Losartan Potassium 100 MG 1 tablet Orall y Once a day; Duration: 30 days Active Pioglitazone HCl 45 MG 1 tablet Orally O nce a day; Duration: 30 day(s) Active glipiZIDE 5 MG 1 tablet 30 minutes before breakfast Orally Once a day; Duration: 30 days Active Rybelsus 14 MG 1 tablet at least 30 minutes before first food, beverage or other oral medicine of the day Orally Once a day; Duration: 30 days Active oxyCODONE-Acetaminophen 10-325 MG 1 tablet as needed Orally every 6 hrs; Duration: 14 days 12/26/2024 Active diazePAM 10 MG 1 tablet as needed Orally 3 times a day; Duration: 14 days As needed severe anxiety 12/26/2024 Active rOPINIRole HCl 0.5 MG 1 tablet 1 to 3 ho urs before bedtime Orally Once a day; Duration: 30 days Active Diclofenac Sodium 75 MG 1 tablet take with food Orally Twice a day; Duration: 30 days As needed pain 10/03/2024 Active Ketoconazole 2 % 1 application Externally Once a day; Duration: 14 days As needed rash Active DULoxetine HCl 60 MG 1 capsule Orally tw ice a day; Duration: 30 days Active metFORMIN HCl 500 MG 2 tablets Orally tw ice a day; Duration: 30 days Active Aspirin 81 MG 1 tablet Orally Once a day; Duration: 30 days Active Multivitamin - 1 tablet Orally Once a day Active Social History Tobacco Use: Social History Observation Description Date Details (start date - stop date) Current Smoker NA - NA Tobacco Control (Standard) Question Answer Notes Tobacco use: Current smoker Additional Findings: Tobacco user Trivia l cigarette smoker (less than 1 cig/day),Light cigarette smoker (1-9 cigs/day) Problems Problem Type SNOMED Code ICD Code Onset Dates Problem Status W/U Status Risk Notes Problem Polyneuropathy due to type 2 diabetes mellitus (524503236) Type 2 diabetes mellitus with diabetic polyneuropathy (E11.42) Active confirmed Problem Cervicalgia (98339623) Cervicalgia (M54.2) Active confirmed Problem Osteoarthritis (293927032) Osteoarthritis (M19.90) Active confirmed Problem Restless legs syndrome (87005319) Restless leg syndrome (G25.81) Active confirmed Problem Overweight (376377909) Over weight (E66.3) Active confirmed Problem Benzodiazepine dependence (215181637) Benzodiazepine dependence (F13.20) Active confirmed Problem Anemia of chronic disease (670878099) Anemia of chronic disease (D63.8) Active confirmed Problem Cigarette smoker (22784494) Cigarette smoker (F17.210) Active confirmed Vital Signs Heart Rate 94 /min 12/26/2024 Temperature 98.8 degrees Fahrenheit 11/07/2024 Respiratory Rate 18 /min 12/26/2024 Oximetry 96 % 12/26/2024 Blood pressure diastolic 74 mm Hg 12/26/2024 Height 70 in 12/26/2024 Blood pressure systolic 124 mm Hg 12/26/2024 Weight 245.8 lbs 12/26/2024 BMI 35.26 kg/m2 12/26/2024 Encounters Encounter Location Date Provider Diagnosis [place] [address] [place] [address] 10/03/2024 Rick Goldman Over weight E66.3 ; Type 2 diabetes mellitus with diabetic polyneuropathy E11.42 ; Dorsalgia of lumbosacral region M54.50 ; Cervicalgia M54.2 ; Osteoarthritis M19.90 ; Exposure to potential infection Z20.9 ; Benzodiazepine dependence F13.20 ; Opioid use F11.90 ; Fatigue R53.83 and Cigarette smoker F17.210 Formerly [facility] [address] [place] [address] 10/28/2024 Rick Goldman Cervicalgia M54.2 ; Dorsalgia of lumbosacral region M54.50 ; Osteoarthritis M19.90 ; Anemia of chronic disease D63.8 ; Type 2 diabetes mellitus with diabetic polyneuropathy E11.42 ; Benzodiazepine dependence F13.20 ; Over weight E66.3 and Opioid use F11.90 Formerly [facility] [address] [place] [address] 11/07/2024 Rick Goldman Cervicalgia M54.2 ; Dorsalgia of lumbosacral region M54.50 ; Osteoarthritis M19.90 ; Over weight E66.3 ; Type 2 diabetes mellitus with diabetic polyneuropathy E11.42 ; Benzodiazepine dependence F13.20 ; Anemia of chronic disease D63.8 and Restless leg syndrome G25.81 Formerly [facility] [address] [place] [address] 12/05/2024 Rick Goldman Dorsalgia of lumbosacral region M54.50 and Type 2 diabetes mellitus with diabetic polyneuropathy E11.[address] [place] [address] 12/13/2024 Rick Goldman Cervicalgia M54.2 an d Benzodiazepine dependence F13.20 Formerly [facility] [address] [place] [address] 12/26/2024 Rick Goldman Osteoarthritis M19.9 0 ; Type 2 diabetes mellitus with diabetic polyneuropathy E11.42 ; Restless leg syndrome G25.81 ; Cervicalgia M54.2 ; Benzodiazepine dependence F13.20 and Over weight E66.[address] [place] [address] 01/09/2025 Rick Goldman [address] [address] 10/10/2024 Rick Goldman [address] [address] 10/20/2024 Rick Goldman [address] [address] 10/31/2024 Rick Goldman Benzodiazepine dependence F13.20 and Type 2 diabetes mellitus with diabetic polyneuropathy E11.[address] [address] 11/07/2024 Rick Goldman [address] [address] 11/29/2024 Rick Goldman Benzodiazepine dependence F13.[address] [address] 12/09/[address] [place] [address] 12/12/2024 Rick Goldman [address] [address] 12/27/2024 Rick Goldman Assessments Encounter Date Diagnosis (ICD Code) Assessment Notes Treatment Notes Treatment Clinical Notes Section Notes 12/13/2024 Cervicalgia (ICD-10 - M54.2) 12/13/2024 Benzodiazepine dependence (ICD-10 - F13.20) 12/26/2024 Type 2 diabetes mellitus with diabetic polyneuropathy (ICD-10 - E11.42) 12/26/2024 Osteoarthritis (ICD-10 - M19.90) 10/31/2024 Benzodiazepine dependence (ICD-10 - F13.20) 11/07/2024 Cervicalgia (ICD-10 - M54.2) 11/07/2024 Dorsalgia of lumbosacral region (ICD-10 - M54.50) 11/29/2024 Benzodiazepine dependence (ICD-10 - F13.20) 12/05/2024 Type 2 diabetes mellitus with diabetic polyneuropathy (ICD-10 - E11.42) 12/05/2024 Dorsalgia of lumbosacral region (ICD-10 - M54.50) 10/03/2024 Type 2 diabetes mellitus with diabetic polyneuropathy (ICD-10 - E11.42) 10/03/2024 Over weight (ICD-10 - E66.3) 10/28/2024 Cervicalgia (ICD-10 - M54.2) 10/28/2024 Dorsalgia of lumbosacral region (ICD-10 - M54.50) SEE [facility] 10/31/2024 Type 2 diabetes mellitus with diabetic polyneuropathy (ICD-10 - E11.42) 10/28/2024 Osteoarthritis (ICD-10 - M19.90) 10/03/2024 Dorsalgia of lumbosacral region (ICD-10 - M54.50) f/u WITH [facility] [place] 11/07/2024 Osteoarthritis (ICD-10 - M19.90) 12/26/2024 Restless leg syndrome (ICD-10 - G25.81) 11/07/2024 Over weight (ICD-10 - E66.3) 12/26/2024 Cervicalgia (ICD-10 - M54.2) 10/28/2024 Anemia of chronic disease (ICD-10 - D63.8) 10/03/2024 Cervicalgia (ICD-10 - M54.2) 10/03/2024 Osteoarthritis (ICD-10 - M19.90) 10/28/2024 Type 2 diabetes mellitus with diabetic polyneuropathy (ICD-10 - E11.42) 11/07/2024 Type 2 diabetes mellitus with diabetic polyneuropathy (ICD-10 - E11.42) 12/26/2024 Benzodiazepine dependence (ICD-10 - F13.20) 10/28/2024 Benzodiazepine dependence (ICD-10 - F13.20) 11/07/2024 Benzodiazepine dependence (ICD-10 - F13.20) 12/26/2024 Over weight (ICD-10 - E66.3) 10/03/2024 Exposure to potential infection (ICD-10 - Z20.9) 10/03/2024 Benzodiazepine dependence (ICD-10 - F13.20) 10/28/2024 Over weight (ICD-10 - E66.3) 11/07/2024 Anemia of chronic disease (ICD-10 - D63.8) 11/07/2024 Restless leg syndrome (ICD-10 - G25.81) 10/28/2024 Opioid use (ICD-10 - F11.90) 10/03/2024 Opioid use (ICD-10 - F11.90) 10/03/2024 Fatigue (ICD-10 - R53.83) 10/03/2024 Cigarette smoker (ICD-10 - F17.210) ABSTAINING SINCE 10/02/24 12/05/2024 Other [place] W/O ISSUES Plan Of Treatment Next Appt Details Provider Name:Rick Goldman , 01/23/2025 08:20:00 AM, [address], [place], [address], Insurance Providers Payer Name Payer Address Payer Phone Subscriber Number Group Number Insured Name Patient Relationship to Insured Coverage Start Date Coverage End Date [facility] [address] [place] [address] [id number] Darnell Olea Self - patient is the insured Medical (General) History Medical History History ICD Code Spinal stenosis herniated discs type 2 Diabetes hypertension Surgical History Surgery Date(Month/Year) Knee replacements both knees 2009 Back surgery 11/15/2024 Hospitalization History Reason Date(Month/Year)
--- OUTSIDE RECORDS SUMMARY | 2025-01-10 06:36 | XMS_ITS | Clinical Summary ---
Author Organization [facility] Address Formerly [facility] [place] [address] Care Team Providers Care Decaler Name Role Phone Unavailable Primary Care Provider Unavailabl e Allergies Active Allergy Reactions Criticality Noted Date Comments Duloxetine Hcl Other (see comment) 01/11/2021 [place] like he was on speed Medications NARCAN [...] polyneuropathy, with long-term current use of insulin ([facility]CC) 1 strip by Other route 4 (four) times daily. 400 strip 1 05/13/19 22 Active Lancets MiscIndications:Ty pe 2 diabetes mellitus with diabetic polyneuropathy, with long-term current use of insulin ([facility]/HCC) Test 4 times daily 400 each 1 08/20/19 22 Active buPROPion XL (WELLBUTRIN XL) 150 MG 24 hr tabletIndications: Anxiety Take 3 tablets (450 mg total) by mouth daily. 90 tablet 2 10/30/19 22 Active Glucose Blood (CONTOUR TEST) test stripIndications:T ype 2 diabetes mellitus with diabetic polyneuropathy, with long-term current use of insulin ([facility]) 1 strip by Other route as needed. Test four times daily 400 strip 1 01/25/20 22 Active Blood Glucose Monitoring Suppl (CONTOUR NEXT MONITOR) w/Device KitIndications:Typ e 2 diabetes mellitus with diabetic polyneuropathy, with long-term current use of insulin ([facility]) Use daily as directed 1 kit 01/30/20 22 Active fluticasone-salmet selma (WIXELA INHUB) 500-50 MCG/ACT inhalerIndications :Pulmonary emphysema, unspecified emphysema type ([facility]) Inhale 1 puff into the lungs 2 [...] polyneuropathy, with long-term current use of insulin ([facility]) Inject 45 Units into the skin every morning AND 5 Units every evening. 9 pen 2 05/22/19 23 Active propranolol LA (INDERAL LA) 80 MG 24 hr capsuleIndications :Hypertension associated with type 2 diabetes mellitus ([facility]) Take 1 capsule by mouth once daily [...] polyneuropathy, with long-term current use of insulin ([facility]) USE 1 STRIP TO CHECK GLUCOSE 4 TIMES DAILY NEEDED 400 strip 08/15/19 23 Active BD PEN NEEDLE LAURA 2ND GEN 32G X 4 MM MiscIndications:Ty pe 2 diabetes mellitus with diabetic polyneuropathy, with long-term current use of insulin ([facility]) USE TO INJECT INSULIN ONCE DAILY 100 each 08/15/19 23 Active glipiZIDE (GLUCOTROL) 10 MG tabletIndications: Type 2 diabetes mellitus with diabetic polyneuropathy, with long-term current use of insulin ([facility]) Take 1 tablet by mouth twice daily 180 tablet 09/30/19 23 Active losartan (COZAAR) 100 MG tabletIndications: Type 2 diabetes mellitus with diabetic polyneuropathy, with long-term current use of insulin ([facility]) Take 1 tablet by mouth once daily 90 tablet 1 09/30/19 23 Active pravastatin (PRAVACHOL) 40 MG tabletIndications: Hyperlipidemia, unspecified hyperlipidemia type Take 1 tablet by mouth once daily 90 tablet 1 09/30/19 23 Active metFORMIN ER (GLUCOPHAGE-XR) 500 MG 24 hr tabletIndications: Type 2 diabetes mellitus with diabetic polyneuropathy, with long-term current use of insulin ([facility]) Take 2 tablets by mouth twice daily 120 tablet 10/31/19 23 Active Active Problems Problem Noted Date Diagnosed Date Vitamin D deficiency 04/22/2022 Morbid (severe) obesity due to excess calories 0 04/22/2022 Current mild episode of gordon r depressive disorder without prior episode 04/22/2022 Benign prostatic hyperplasia , unspecified whether lower urinary tract symptoms present 04/22/2022 DYLON (generalized anxiety disorder) 04/22/2022 Hyperlipidemia associated with type 2 diabetes m ellitus 09/25/2021 Long-term insulin use 09/25/2021 Pulmonary emphysema, unspecified emphysema type 09/25/2021 Hypertension associated with type 2 diabetes daryl litus 08/08/2021 Type 2 diabetes mellitus wit h diabetic polyneuropathy, with long-term current use of insulin 06/27/2021 Degeneration of lumbar or lumbosacral interverte bral disc 06/30/2011 Immunizations Immunization Administration Dates Next Due Flulaval Quad (Multi-Dose Vial) 12/18/2017 Fluzone High Dose - >Age 65 (Prefilled Syringe) 12/16/2021 Influenza (Generic) 11/16/2020, 0,12/14/2018,2017,12/28/2016,11/30/2015,11/30/2013,0 11/29/2012 Influenza Adult (Generic) 12/02/2019,,12/18/2017,2016 Pneumococcal (Pneumovax 23) 12/14/2018, 6 Pneumococcal (Prevnar 13) 12/06/2014 Pneumovax 23 25 Mcg/0.5Ml Ij Inj 12/14/2018,11/28 Shingrix 01/31/2020,12/02/2019 Tdap (Generic) 12/14/2018 Zoster (Zostavax) 38532 Unt/0.65Ml 01/30,12/02/2019,12/07/2014,2014 Family History Medical History Relation [...] Date Smoking Tobacco: Every Day Cigarettes 0.5 51.8 Started: 1973 Smokeless Tobacco: Never Tobacco Cessation:Ready to Q uit: Yes; Counseling Given: Yes Comments:[provider to family counselor Alcohol Use Standard Drinks/Week Comments Not [...] Comments Blood Pressure 124/78 04/22/2022 7:34 AM [employer] INCIDENT [employer]ER Pulse 102 04/22/2022 7:34 AM SEC[employer] INCIDENT [employer] Temperature 36.7 C (98.1 F) 04/22/2022 7:34 AM SECURITY INCIDENT HANDLER Respiratory Rate 16 04/22/2022 7:34 AM SECURITY INCIDENT HAND[employer]ER Oxygen Saturation 92% 04/22/2022 7:34 AM SECURITY INCIDENT HANDLER Inhaled Oxygen Concentration - - Weight 122.8 kg (270 lb 12.8 oz) 04/22/2022 7:34 AM SECURITY INCIDENT HAND[employer]ER Height 177.8 cm (5' 10) 04/22/2022 7:34 AM SECURITY INCIDENT HANDLER Body Mass Index 38.86 04/22/2022 7:34 AM SECURITY INCIDENT HANDLER Plan of Treatment Health Maintenance Due Date Last Done Comments Kidney Health Evaluation 1955 RSV Immunization or 60+ Years (1 - Risk 60-74 years 1-dose series) 2015 Annual Medicare Wellness Visit 12/28/2020 Hemoglobin A1C 10/20/2022 04/22/2022, 11/29, 07/04/2021, Additional history exists Lipid Panel 12/18/2022 12/18/2021, 12/12/2020 Pneumococcal Vaccine: 50+ Years (3 of 3 - PCV20 or PCV21) 12/15/2023 12/14/2018, 12/14/2018, 12/08/2015, Additional history exists Diabetes: Retinopathy Eye Exam 01/04/2024 01/03/2022, 01/01/2021 PHQ-2 (Physician [place]) 03/30/2024 COVID-19 Vaccine ( season) 2024 12/16/2021, 07/16/2021, 02/11/2021, Additional history exists Influenza Adult (#1) 2024 12/16/2021, 11/16/2020, 12/02/2019, Additional history exists DTaP, Tdap and Td Vaccines (2 - Td or Tdap) 12/14/2028 12/14/2018 Colorectal Cancer Screening Colonoscopy (10 Years) 05/30/2032 05/30/2022, 12/08/2016 Zoster Vaccines Completed 01/31/2020, 1105/2019, 12/02/2019, Additional history exists Hepatitis C Completed 12/18/2021 Hepatitis A Vaccines Aged Out No long er eligible based on patient's age to complete this topic Meningococcal B Vaccine Aged Out No l [...] (BACK OFFICE) (04/22/2022) HGB A1C 8.5 % HAIDER RENTERIA 04/22/2022 us Kane Treviño DO LABORATORY Final Re sult [facility] [address] [place] [address], * DIABETIC RETINOPATHY EXAM (NEGATIVE)(SCAN) (01/03/2022) us Doc [facility] Scanned SCANNING Final Resu lt Performing Organization Address City/[facility]/ZIP Co de Phone Number [facility] * LIPID PANEL (12/18/2021 7:57 AM CDT) CHOLESTEROL 146 MG/DL 12/18/2021 3:23 PM CDT [facility] TRIGLYCERIDES 143 <150 MG/DL 12/18/2021 3:23 PM CDT [facility] HDL 44 >40 MG/DL 12/18/2021 3:23 PM CDT [facility] LDL-C 73 MG/DL 12/18/2021 3:23 PM CDT [facility] VLDL CALCULATION 29 MG/DL 12/19/19 3:23 PM CDT [facility] CHOL/HDL RATIO 3.3 12/18/2021 3:23 PM CDT [facility] LDL/HDL 1.7 12/18/2021 3:23 PM CDT [facility] NON HDL CHOLESTEROL 102 MG/DL 12/18/2021 3:23 PM CDT [facility] 12/18/2021 7:57 AM CDT Kane Treviño DO LABORATORY Final Re sult Performing Organization Address City/[facility]/ZIP Co de Phone Number [facility] [address] [place] [address], [place] [phone] * HEPATITIS C ANTIBODY (12/18/2021 7:57 AM CDT) HEPATITIS C AB NON-REACTI VE NON-REACT KEISHA 12/18/2021 6:40 PM CDT [facility] Comment: ANTIBODIES TO HCV NOT DETECTED. DOES NOT EXCLUDE THE POSSIBILITY OF EXPOSURE TO HCV. 12/18/2021 7:57 AM CDT Kane Treviño DO LABORATORY Final Re sult [facility] [address] [place] [address], [phone] from Last 3 Months or Most Recently Relevant to Health Maintenance Insurance
== END 2025-01-10 06:34 | disposition home or self-care (01) ==
PROVIDERS: Visit Provider Neurological Surgery
DX: Z98.1 Arthrodesis status (principal)
CPT/HCPCS: 72100